=== PATIENT | female | born 1935 | race Caucasian/White ===

== ENCOUNTER 2016-11-22 14:54 | Emergency (ER) | payer OTHER ==
[2016-11-22 15:04] VITALS: BP 123/61; PULSE 62; TEMP 97.8; BMI 27.3
--- NOTE | 2016-11-22 15:21 | PDOC ---
History of Present Illness - General Chief Complaint: Rash Stated Complaint: RASH TO RIGHT LEG Time Seen by Provider: 11/22/16 14:56 - History of Present Illness Initial Comments: 11/22/16 15:21 Chief complaint: Rash History of present illness: Patient complains of an itchy rash, primarily on the right lateral calf, but also in the left calf, left and right thighs. The rash is pruritic, and the patient scratches it frequently. She has been seen and treated by her primary physician with 0.1% triamcinolone and clotrimazole antifungal with no results. Review of systems: No skin ALLERGIES known. No chest pain, shortness of breath, abdominal pain, nausea, vomiting, diarrhea, visual or focal neurologic symptoms , unsteadiness of gait. No new medications. No exposure to suspicious foods or allergens Past medical history: Patient is extremely active and vibrant despite multiple medical problems including [id number] diabetes for 20 years, high blood pressure, chronic vertigo, colon cancer in remission, GERD, elevated cholesterol, irritable bowel, with constipation, and osteoporosis Social history: Lives with daughter, fully active, still was out dancing, no tobacco alcohol or nonprescription drugs Family history: Reviewed and noncontributory Physical exam: Alert oriented cheerful and cooperative no acute distress Afebrile, vital signs normal HEENT clear Neck supple without bruit mass or nodes Lungs clear CV regular without murmur rub or gallop Abdomen benign Neurological intact Skin reveals eczematous lesions the largest of which is about 6 cm x 4 cm, lateral right thigh. There are petechiae around these lesions, probably the result of scratching. The patient had full blood workup approximately one week ago at her primary physician's office, reported as normal. The number similar smaller Leeson's on the left thigh. There are hyperpigmented, 1-2 cm round lesions on the thighs and arms which do not appear to be active and appeared to be the result of scarring. They are nontender non-erythematous cool and noninflamed Impression: Stasis dermatitis of the calves. Posttraumatic hyperpigmentation of the thighs and arms Plan: Steroid cream. Support hose. Vascular referral. Past History - Past Medical History Allergies/Adverse Reactions: Allergies Allergy/AdvReac Type Severity Reaction Status Date / Time No Known Allergies Allergy Verified 11/22/16 14:55 Home Medications: Ambulatory Orders Alendronate Sodium [Fosamax Liquid] 70 mg PO DAILY 09/16/12 Gabapentin 300 mg PO HS 09/16/12 Metformin HCl [Glucophage -] 500 mg PO DAILY 09/16/12 Simvastatin [Zocor -] 40 mg PO HS 09/16/12 Valsartan [Diovan] 320 mg PO DAILY 09/17/12 Alprazolam 1 tab PO DAILY 02/13/15 Olopatadine HCl [Pataday] 1 drop OU BID 02/13/15 Omeprazole [Prilosec (RX)] 1 tab PO DAILY PRN 02/13/15 Sotalol HCl [Sotalol] 1 tab PO BID 02/13/15 Timolol Maleate 0.5% Gfs [Timoptic Xe 0.5%] 1 drop OU DAILY 02/13/15 Apixaban [Eliquis] 5 mg PO BID 02/14/15 Psyllium Husk [Metamucil] 0.52 gm PO DAILY 02/14/15 Calcium [Hi-Malvin] 1,200 mg PO DAILY 02/26/15 Spironolactone 25 mg PO DAILY 02/26/15 Betamethasone/Propylene Glyc [Diprolene 0.05% Ointment] 1 applic TP BID #1 tube 11/22/16 Cyclosporine [Restasis] 1 drp DAILY 11/22/16 Hydroxyzine HCl [Atarax -] 10 mg PO TID PRN #20 tablet 11/22/16 Propylene Glycol/Peg 400/Pf [Systane 0.3-0.4% Eye Drops] 1 each OP DAILY Anemia: No Asthma: No Cancer: Yes (H/O COLON ADENOCARCINOMA,OVARIAN CANCER) Cardiac Disorders: Yes (CORONARY ARTERY DISEASE,CARDIAC ARRHYTHMIAS) CVA: No COPD: No CHF: Yes Dementia: No Diabetes: Yes GI Disorders: Yes (CHRONIC CONSTIPATION,REDUNDANT COLON,ULCER STOMACH) Disorders: No HTN: Yes Hypercholesterolemia: Yes Liver Disease: No Seizures: No Thyroid Disease: No Other medical history: OSTEOARTHRITIS, CATARACTS GLAUCOMA - Surgical History Abdominal Surgery: Yes Appendectomy: No Cardiac Surgery: No Cholecystectomy: No GI Surgery: Yes (COLON SURGERY) Lung Surgery: No Neurologic Surgery: Yes (LAMINECTOMY) Orthopedic Surgery: No - Psycho/Social/Smoking Cessation Hx Anxiety: No Suicidal Ideation: No Smoking History: Never smoked Information on smoking cessation initiated: No Hx Alcohol Use: No Drug/Substance Use Hx: No Substance Use Type: None Hx Substance Use Treatment: No *Physical Exam - Vital Signs Last Vital Signs Temp Pulse Resp BP Pulse Ox 97.8 F 62 16 123/61 99 11/22/16 14:55 11/22/16 14:55 11/22/16 14:55 11/22/16 14:55 11/22/16 14:55 *DC/Admit/Observation/Transfer Diagnosis at time of Disposition: Stasis dermatitis of both legs - Discharge Dispostion Disposition: HOME Condition at time of disposition: Stable Admit: No - Prescriptions Prescriptions: Hydroxyzine HCl [Atarax -] 10 mg PO TID PRN #20 tablet PRN Reason: For Itching Betamethasone/Propylene Glyc [Diprolene 0.05% Ointment] 1 applic TP BID #1 tube - Referrals Referrals: Felipe Wolfe MD [Staff Physician] - - Patient Instructions Additional Instructions: Avoid hot baths and showers. Use heavy skin moisturizer, especially after bathing. Ointment as directed. See clinical nursing manager for further evaluation and possible skin biopsy Use oral medication as prescribed for severe itching, but be aware of drowsiness
== END 2016-11-22 15:42 | disposition home or self-care (01) ==
LOC: FER 14:54
DX: I87.2 Venous insufficiency (chronic) (peripheral) (principal); Z85.038 Personal history of other malignant neoplasm of large intestine; Z85.43 Personal history of malignant neoplasm of ovary; E11.9 Type 2 diabetes mellitus without complications; I10 Essential (primary) hypertension; E78.00 Pure hypercholesterolemia, unspecified; M19.90 Unspecified osteoarthritis, unspecified site; I25.10 Atherosclerotic heart disease of native coronary artery without angina pectoris
CPT/HCPCS: 99281-25

== ENCOUNTER 2018-04-02 14:02 | Emergency (ER) | payer OTHER ==
[2018-04-02] MEDS ORDERED: IBUPROFEN 600 MG TABLET (FP) PO ONE ×2 (14:18→14:42)
[2018-04-02] MEDS ORDERED: ACETAMINOPHEN 500 MG TABLET (FP) PO ONE (14:18)
--- NOTE | 2018-04-02 14:18 | PDOC ---
History of Present Illness - General Chief Complaint: Injury Stated Complaint: RT KNEE PAIN Time Seen by Provider: 04/02/18 14:03 - History of Present Illness Initial Comments: 04/02/18 14:04 Patient is an 82F with history of DM, HTN, afib on eliquis, hld, glaucoma here today complaining of 2 weeks of knee pain. Pain is worse with used and holding the joint still at an angle. Patient is an active dancer. Denies fevers, chills , nausea, vomiting. Denies chest pain, shortness of breath, recent travel. No history of dvt in the past. Past History - Past Medical History Allergies/Adverse Reactions: Allergies Allergy/AdvReac Type Severity Reaction Status Date / Time No Known Allergies Allergy Verified 11/22/16 14:55 Home Medications: Ambulatory Orders Gabapentin 300 mg PO HS 09/16/12 Simvastatin [Zocor -] 40 mg PO HS 09/16/12 metFORMIN HCL [Glucophage -] 500 mg PO DAILY 09/16/12 Valsartan [Diovan] 320 mg PO DAILY 09/17/12 Alprazolam 1 tab PO DAILY 02/13/15 Olopatadine HCl [Pataday] 1 drop OU BID 02/13/15 Omeprazole [Prilosec (RX)] 1 tab PO DAILY PRN 02/13/15 Sotalol HCl [Sotalol] 1 tab PO BID 02/13/15 Timolol Maleate 0.5% Gfs [Timoptic Xe 0.5%] 1 drop OU DAILY 02/13/15 Apixaban [Eliquis] 5 mg PO BID 02/14/15 Calcium [Hi-Malvin] 1,200 mg PO DAILY 02/26/15 Spironolactone 25 mg PO DAILY 02/26/15 Betamethasone/Propylene Glyc [Diprolene 0.05% Ointment] 1 applic TP BID #1 tube 11/22/16 Cyclosporine [Restasis] 1 drp DAILY 11/22/16 Anemia: No Asthma: No Cancer: Yes (H/O COLON ADENOCARCINOMA,OVARIAN CANCER) Cardiac Disorders: Yes (CORONARY ARTERY DISEASE,CARDIAC ARRHYTHMIAS) CVA: No COPD: No CHF: Yes Dementia: No Diabetes: Yes GI Disorders: Yes (CHRONIC CONSTIPATION,REDUNDANT COLON,ULCER STOMACH) Disorders: No HTN: Yes Hypercholesterolemia: Yes Liver Disease: No Seizures: No Thyroid Disease: No - Surgical History Abdominal Surgery: Yes Appendectomy: No Cardiac Surgery: No Cholecystectomy: No GI Surgery: Yes (COLON SURGERY) Lung Surgery: No Neurologic Surgery: Yes (LAMINECTOMY) Orthopedic Surgery: No - Suicide/Smoking/Psychosocial Hx Smoking History: Never smoked Hx Alcohol Use: No Drug/Substance Use Hx: No Substance Use Type: None Hx Substance Use Treatment: No Review of Systems - Review of Systems Comments:: 04/02/18 14:25 GENERAL/CONSTITUTIONAL: No fever or chills. No weakness. HEAD, EYES, EARS, NOSE AND THROAT: No change in vision. No sore throat. CARDIOVASCULAR: No chest pain or shortness of breath RESPIRATORY: No cough, wheezing, or hemoptysis. GASTROINTESTINAL: No nausea, vomiting, diarrhea or constipation. GENITOURINARY: No dysuria, frequency, or change in urination. MUSCULOSKELETAL: +R knee pain. No neck or back pain. SKIN: No rash NEUROLOGIC: No headache, vertigo, loss of consciousness, or change in strength/ sensation. HEME: No history of blood clots *Physical Exam - Physical Exam Comments: 04/02/18 14:41 GENERAL: Awake, alert, and fully oriented, in no acute distress R KNEE: No point tenderness, no injury noted, nontender in posterior vascular distribution HEAD: No signs of trauma, normocephalic, atraumatic EYES: PERRLA, EOMI, sclera anicteric, conjunctiva clear ENT: Auricles normal inspection, hearing grossly normal, nares patent, oropharynx clear without exudates. Moist mucosa LUNGS: No distress, speaks full sentences, clear to auscultation bilaterally HEART: Regular rate and rhythm, normal S1 and S2, no murmurs, rubs or gallops, peripheral pulses normal and equal bilaterally. ABDOMEN: Soft, nontender, normoactive bowel sounds. No guarding, no rebound. No masses EXTREMITIES: Normal inspection, Normal range of motion, no edema. No clubbing or cyanosis. NEUROLOGICAL: Cranial nerves II through XII grossly intact. Normal speech, normal gait, no focal sensorimotor deficits SKIN: Warm, Dry, normal turgor, no rashes or lesions noted. Medical Decision Making - Medical Decision Making 04/02/18 14:41 Patient is 82F on eliquis here with knee pain. Vitals normal and stable. Blood clot only life threat. Will treat with tylenol and motrin. Will eval with x- rays and dvt us. 04/02/18 14:56 X-rays show arthritis, no acute fracture, dislocation. Patient is ambulatory in ED. 04/02/18 15:56 DVT negative. Will discharge home. *DC/Admit/Observation/Transfer Diagnosis at time of Disposition: Knee pain, right - Discharge Dispostion Disposition: HOME Condition at time of disposition: Good Decision to Admit order: No - Referrals - Patient Instructions Printed Discharge Instructions: DI for Knee Pain Additional Instructions: Please follow up with your MRI on Thursday. Please return if you have any new, worsening or concerning symptoms. Please follow up with your primary care provider. - Post Discharge Activity
--- NOTE | 2018-04-02 14:31 | PDOC ---
Attending Attestation - Resident Resident Name: Swapnil Ponce - ED Attending Attestation I have performed the following: I have examined & evaluated the patient, The case was reviewed & discussed with the resident, I agree w/resident's findings & plan, Exceptions are as noted - HPI HPI: 04/02/18 14:25 82-year-old female patient with past history of hypertension, hyperlipidemia, atrial fibrillation on eliquis, presents with right knee pain for 2 weeks. The patient is a dancer and dances frequently. Had noticed 2 weeks ago that she was developing right hip pain radiating to right knee. Reports discomfort along the right thigh as well. No fevers or chills. No chest pain short of breath. Patient attempted to call their primary care physician but wasn't able to secure follow-up. Came to the ER for evaluation. - Physicial Exam PE: 04/02/18 14:28 GENERAL: Awake, alert, and fully oriented, in no acute distress HEAD: No signs of trauma EYES: PERRLA, EOMI, sclera anicteric, conjunctiva clear ENT: Auricles normal inspection, hearing grossly normal, nares patent. Moist mucosa NECK: Normal ROM, supple, EXTREMITIES: Normal range of motion, no edema. No clubbing or cyanosis. No cords, erythema, or tenderness RLE: 2+ Dp pulse. sensation intact throughout. FROM Knee and Hip. Pelvis stable and nontender. Femur nontendner. Mild TTP right anterior knee. Negative orville sign. negative anterior/posterior drawer sign. negative varus/valgus. NEUROLOGICAL: Cranial nerves II through XII grossly intact. Normal speech, normal gait SKIN: Warm, Dry, normal turgor, no rashes or lesions noted. - Medical Decision Making 04/02/18 14:31 I suspect likely musculoskeletal pain or strain. However, will r/o hip and knee fracture. RLE duplex to r/o DVT. If negative, supportive care with tylenol and/or motrin and follow up with PMD/ ortho. 04/02/18 15:53 Ultrasound demonstrates no DVT Xrays reviewed by me, pending official radiology read. No acute fractures. Noted to have arthritis.
[2018-04-02 14:38] VITALS: BP 115/65; PULSE 72; TEMP 98.1; BMI 27.2
[2018-04-02] MEDS ORDERED: ACETAMINOPHEN 500 MG TABLET (FP) ONE (14:42)
== END 2018-04-02 16:08 | disposition home or self-care (01) ==
LOC: FER 14:02
DX: M25.561 Pain in right knee (principal); Z79.01 Long term (current) use of anticoagulants; I50.9 Heart failure, unspecified; I10 Essential (primary) hypertension; Z85.038 Personal history of other malignant neoplasm of large intestine; E78.00 Pure hypercholesterolemia, unspecified; I49.9 Cardiac arrhythmia, unspecified
CPT/HCPCS: 73523-TC-FY; 73562-TC-RT-FY; 93971-TC; 99281-25

== ENCOUNTER 2018-05-13 06:55 | Day surgery (SDC) | payer OTHER ==
[2018-05-12 14:16] VITALS: BMI 24.7
[2018-05-13] MEDS ORDERED: SUCCINYLCHOLINE CHLORIDE 200 MG/10 ML VIAL ONE (07:45)
[2018-05-13] MEDS ORDERED: PROPOFOL 20 ML ONE (07:45)
[2018-05-13] MEDS ORDERED: SODIUM CHLORIDE 0.9% P/F 10 ML VIAL IJ ONE (07:47)
[2018-05-13] MEDS ORDERED: ceFAZolin SODIUM 1 GM VIAL ONE (07:47)
[2018-05-13] MEDS ORDERED: DEXAMETHASONE SOD PHOSPHATE 4 MG/1 ML VIAL ONE (07:47)
[2018-05-13] MEDS ORDERED: LIDOCAINE HCL/PF 2% SDV 5ML VIAL ONE (07:47)
[2018-05-13] MEDS ORDERED: LIDOCAINE HCL 1%, 10 MG/ML (20ML VIAL) ONE (08:27)
[2018-05-13] MEDS ORDERED: BUPIVACAINE HCL/PF 0.5% (5MG/ML) 10 ML VIAL ONE (08:27)
--- NOTE | 2018-05-13 08:42 | HP ---
Satellite [facility] - Chief Complaint Chief Complaint: right knee pain History of Present Illness: right knee medial and lateral mensicus tears, OA History Source: Patient Limitations to Obtaining History: No Limitations - Past Medical History Allergies/Adverse Reactions: Allergies Allergy/AdvReac Type Severity Reaction Status Date / Time No Known Allergies Allergy Verified 05/13/18 07:49 - Current Medications Current Medications: Home Medications Medication Instructions Recorded Simvastatin [Zocor -] 40 mg PO HS 09/16/12 metFORMIN HCL [Glucophage -] 500 mg PO DAILY 09/16/12 Olopatadine HCl [Pataday] 1 drop OU BID 02/13/15 Omeprazole [Prilosec (RX)] 1 tab PO DAILY PRN 02/13/15 Sotalol HCl [Sotalol] 1 tab PO BID 02/13/15 Timolol Maleate 0.5% Gfs [Timoptic 1 drop OU DAILY 02/13/15 Xe 0.5%] Apixaban [Eliquis] 5 mg PO BID 02/14/15 Spironolactone 25 mg PO DAILY 02/26/15 Cyclosporine [Restasis] 1 drp OU DAILY 11/22/16 Calcium Carbonate/Vitamin D3 2 each PO DAILY 05/12/18 [Calcium 600 + Vit D Tablet] Linaclotide [Linzess] 145 mcg PO DAILY 05/12/18 Meclizine HCl [Antivert -] 25 mg PO DAILY 05/12/18 Tramadol HCl 50 mg PO PRN PRN 05/12/18 Alprazolam 1 mg PO PRN PRN 05/13/18 Fosamprenavir Calcium 700 mg PO WEEKLY 05/13/18 Gabapentin 100 mg PO DAILY 05/13/18 Gabapentin 300 mg PO HS 05/13/18 Psyllium Husk (with Sugar) 3.4 gm PO DAILY 05/13/18 [Metamucil Packet] Valsartan [Diovan] 320 mg PO 05/13/18 Satellite Physical Exam - Physical Examination Vital Signs: Vital Signs Period Temp Pulse Resp BP Sys/Marie Pulse Ox Last 24 Hr 97.6 F 68 18 138/74 100 General Appearance: Well Nourished ENT: Clear Lung: Clear to auscultation Heart: Regular rate & rhythm Breasts: Soft Abdomen: Soft Extremities: No edema Satellite Impression/Plan - Impression/Plan Impression: right knee medial and lateral meniscus tears, OA Operative Procedure: right knee arthroscopy Date to be Performed: 05/13/18
[2018-05-13] MEDS ORDERED: METOPROLOL TARTRATE 5 MG/5 ML VIAL ONE (08:47)
[2018-05-13] MEDS ORDERED: ceFAZolin SODIUM 1 GM VIAL IVPB ONE (09:05)
[2018-05-13] MEDS ORDERED: BUPIVACAINE HCL/PF 0.5% (5MG/ML) 10 ML VIAL IJ ONE (09:45)
--- NOTE | 2018-05-13 09:58 | OP ---
Operative Note - Note: Operative Date: 05/13/18 Pre-Operative Diagnosis: right knee pain, MM and LM tear, OA Operation: right knee arthroscopy, partial medial and lateral meniscus tear, debridement chondroplasty, partial synovectomy Post-Operative Diagnosis: Same as Pre-op Surgeon: Jacques Brady Anesthesiologist/FOOD AND BEVERAGE ATTENDANT: Domo Pacheco Anesthesia: General, Local Specimens Removed: shavings Estimated Blood Loss (mls): 0 Drains, Volume Out (mls): 0 Blood Volume Replaced (mls): 0 Fluid Volume Replaced (mls): 500 Operative Report Dictated: Yes
[2018-05-13] MEDS ORDERED: ONDANSETRON 4 MG/2 ML VIAL IVPUSH PRN (10:02)
[2018-05-13] MEDS ORDERED: oxyCODONE HCL 5 MG TABLET PO PRN ×2 (10:02)
[2018-05-13] MEDS ORDERED: LACTATED RINGERS SOLUTION 1,000 ML IV SCH (10:15)
--- NOTE | 2018-05-13 11:30 | OP ---
DATE OF OPERATION: 05/13/2018 PREOPERATIVE DIAGNOSES: Right knee pain, medial and lateral meniscus tear, and osteoarthritis. POSTOPERATIVE DIAGNOSES: Right knee pain, medial and lateral meniscus tear, and osteoarthritis. PROCEDURES: Right knee arthroscopy, partial medial and lateral meniscectomy, debridement chondroplasty, and partial synovectomy. SURGEON: Gumaro Min MD ASSISTANTS: None. ANESTHESIOLOGIST: Domo Pacheco CRNA ANESTHESIA: LMA anesthesia with intra-articular injection of 10 mL 0.5% Marcaine. DRAINS: None. COMPLICATIONS: None. SPECIMEN: Arthroscopic shavings. BLOOD LOSS: None. BLOOD GIVEN: None. FLUID REPLACEMENT: 500 mL INDICATIONS FOR PROCEDURE: This patient is an 82-year-old female with a preoperative diagnosis of right knee arthritis, medial and lateral meniscus tear, and osteoarthritis. After understanding the potential risks, complications, alternatives, and benefits of surgical versus nonsurgical treatment, the patient elected to undergo this procedure. PROCEDURE: Patient was brought to the operating room, peripheral IV placed, and IV sedation given. Ancef 1 g IV was given. LMA anesthesia was induced. Ample Webril was placed around the right knee. The right lower extremity was prepped and draped in sterile fashion, elevated, exsanguinated with an Esmarch bandage, and tourniquet inflated to 275 mmHg. A superior medial outflow portal was established. A lateral portal was established and the arthroscope was introduced into the joint using a spinal needle. Under direct visualization, a lateral portal was established. A diagnostic arthroscopy was performed. In the medial compartment, the patient was seen to have significant grade 3 and small areas of grade 4 osteoarthritis of the medial femoral condyle and grade 2 changes of the medial tibial plateau. A gentle debridement chondroplasty was performed. The patient was also seen to have a complex tear of the posterior horn of the medial meniscus. This was debrided with the up-biter, straight basket forceps and the curved shaver. Photographs were taken before and after. Next, our attention turned to the intracondylar notch. The ACL looked good. There was a lot of synovitis. This was removed. Next, our attention turned to the lateral compartment. Also, there was a lot of synovitis. This was removed. The patient had small radial tears of the body and posterior horn in the lateral meniscus. This was debrided. The lateral compartment did have some grade 2 osteoarthritis of the lateral femoral condyle, but overall looked better than the medial compartment. She had grade 1 changes in the lateral tibial plateau. This was gently debrided, as well. Next, our attention turned to the patellofemoral joint. The patient had the most significant osteoarthritis in this area. She had grade 4, widespread, complete loss of cartilage of both the undersurface of the patella and as well as the femoral trochlea. A debridement chondroplasty was performed here, as well. Debris was removed. Loose bodies were removed. A lot of synovitis was removed. The area was put through a range of motion and no other abnormalities were seen of the patellofemoral joint. The area was copiously irrigated and washed out. All instrumentation and debris removed. The arthroscopy portals were closed with 3-0 nylon sutures. The area was then washed and dried. Marcaine 0.5% of 10 mL was introduced into the joint. It was then covered with Xeroform, 4 x 4 gauze, Webril, and an Mert bandage. The tourniquet was taken down after a total tourniquet time of 28 minutes. There were no complications during the case. The patient tolerated the procedure quite well and was brought to the ambulatory recovery room in stable condition. GUMARO MIN M.D. [id number]
[2018-05-13 14:45] VITALS: BP 133/62; PULSE 75; TEMP 98.1
--- NOTE | 2018-05-14 16:41 | PATH ---
Surgical Pathology Report Patient Name: GAMAL SPANGLER [facility]. Rec. #: [id number] /Age/Gender: 1935 (Age: 82) / F Account: [id number] Location: [facility] Taken: 05/13/2018 Received: 05/13/2018 Reported: 05/14/2018 Physicians: Jacques Brady M.D. Specimen(s) Received RIGHT KNEE SHAVINGS Clinical History Right knee tear Final Diagnosis KNEE SHAVINGS, RIGHT, ARTHROSCOPY: FRAGMENTS OF CARTILAGE, DENSE FIBROCONNECTIVE TISSUE, FIBROADIPOSE TISSUE, AND REACTIVE SYNOVIUM. 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 Electronically Signed Rose Mary Hoover M.D. Gross Description Received in formalin, labeled "right knee shaving," is a 5.5 x 4.5 x 0.6 cm. aggregate of wagoner-yellow soft tissue fragments. A counter sales representative portion is submitted in one cassette. 05/13/2018 saudi05/13/2018
== END 2018-05-13 14:00 | disposition home or self-care (01) ==
LOC: JASU-SURG 06:55
PROVIDERS: ATTEND Orthopaedic Surgery
PROC: 0SBC4ZZ Excision of Right Knee Joint, Percutaneous Endoscopic Approach (ICD-10-PCS; 2018-05-13)
PROC: 0SBC4ZZ Excision of Right Knee Joint, Percutaneous Endoscopic Approach (ICD-10-PCS; 2018-05-13)
PROC: 0SBC4ZZ Excision of Right Knee Joint, Percutaneous Endoscopic Approach (ICD-10-PCS; principal; 2018-05-13 09:00)
DX: S83.281A Other tear of lateral meniscus, current injury, right knee, initial encounter (principal); S83.241A Other tear of medial meniscus, current injury, right knee, initial encounter; X58.XXXA Exposure to other specified factors, initial encounter; Y93.89 Activity, other specified; Y92.9 Unspecified place or not applicable; M65.861 Other synovitis and tenosynovitis, right lower leg; M17.11 Unilateral primary osteoarthritis, right knee
CPT/HCPCS: 82962; 88304-TC; 94760; 97116-GP

== ENCOUNTER 2018-05-26 22:35 | Observation (INO) | payer OTHER ==
--- NOTE | 2018-05-26 23:29 | PDOC ---
History of Present Illness - General Chief Complaint: Pain Stated Complaint: KNEE SWOLLEN History Source: Patient - History of Present Illness Initial Comments: 05/27/18 01:29 82 year old female with history of DM, HTN, afib on eliquis, hld, glaucoma hc/o right knee pain patient is s/p knee arthroses on 05/13, reports that last night while she was taking a shower she noticed increase in pain with unable to weightbear. patient needed a lot of help to be taken out of the 3rd floor apartment as per son and daughter. denies trauma, fall, fever/ chills, chest pain, dizziness. 05/27/18 01:56 Past History - Past Medical History Allergies/Adverse Reactions: Allergies Allergy/AdvReac Type Severity Reaction Status Date / Time No Known Allergies Allergy Verified 05/26/18 22:44 Home Medications: Ambulatory Orders Simvastatin [Zocor -] 40 mg PO HS 09/16/12 metFORMIN HCL [Glucophage -] 500 mg PO DAILY 09/16/12 Olopatadine HCl [Pataday] 1 drop OU BID 02/13/15 Omeprazole [Prilosec (RX)] 1 tab PO DAILY PRN 02/13/15 Sotalol HCl [Sotalol] 1 tab PO BID 02/13/15 Timolol Maleate 0.5% Gfs [Timoptic Xe 0.5%] 1 drop OU DAILY 02/13/15 Apixaban [Eliquis] 5 mg PO BID 02/14/15 Spironolactone 25 mg PO DAILY 02/26/15 Cyclosporine [Restasis] 1 drp OU DAILY 11/22/16 Calcium Carbonate/Vitamin D3 [Calcium 600 + Vit D Tablet] 2 each PO DAILY Linaclotide [Linzess] 145 mcg PO DAILY 05/12/18 Meclizine HCl [Antivert -] 25 mg PO DAILY 05/12/18 Tramadol HCl 50 mg PO PRN PRN 05/12/18 Alprazolam 1 mg PO PRN PRN 05/13/18 Fosamprenavir Calcium 700 mg PO WEEKLY 05/13/18 Gabapentin 100 mg PO DAILY 05/13/18 Gabapentin 300 mg PO HS 05/13/18 Hydrocodone/Acetaminophen [Hydrocodone-Acetamin 5-325 mg] 1 - 2 tab PO TID PRN # 25 tablet MDD 6 05/13/18 Psyllium Husk (with Sugar) [Metamucil Packet] 3.4 gm PO DAILY 05/13/18 Valsartan [Diovan] 320 mg PO 05/13/18 Anemia: No Asthma: No Cancer: Yes (H/O COLON ADENOCARCINOMA,OVARIAN CANCER) Cardiac Disorders: Yes (CORONARY ARTERY DISEASE,CARDIAC ARRHYTHMIAS) CVA: No COPD: No CHF: Yes Dementia: No Diabetes: Yes GI Disorders: Yes (CHRONIC CONSTIPATION,REDUNDANT COLON,ULCER STOMACH) Disorders: No HTN: Yes Hypercholesterolemia: Yes Liver Disease: No Seizures: No Thyroid Disease: No - Surgical History Abdominal Surgery: Yes Appendectomy: No Cardiac Surgery: No Cholecystectomy: No GI Surgery: Yes (COLON SURGERY) Lung Surgery: No Neurologic Surgery: Yes (LAMINECTOMY 1997) Orthopedic Surgery: No - Suicide/Smoking/Psychosocial Hx Smoking History: Never smoked Have you smoked in the past 12 months: No Information on smoking cessation initiated: No Hx Alcohol Use: No Drug/Substance Use Hx: No Substance Use Type: None Hx Substance Use Treatment: No Review of Systems - Review of Systems Able to Perform ROS?: Yes Is the patient limited Yoruba proficient: No Constitutional: No: Symptoms Reported, See HPI, Chills, Diaphoresis, Fever, Loss of Appetite, Malaise, Night Sweats, Weakness, Weight Stable, Unintentional Wgt. Loss, Unexplained wgt Loss, Other Musculoskeletal: Yes: Other (knee pain and swelling) *Physical Exam - Vital Signs Last Vital Signs Temp Pulse Resp BP Pulse Ox 98.1 F 86 18 158/79 99 05/26/18 22:45 05/26/18 22:45 05/26/18 22:45 05/26/18 22:45 05/26/18 22:45 - Physical Exam General Appearance: Yes: Appropriately Dressed Extremity: positive: Other (right knee swelling. no erythema. surgical site clean dry and intact) Integumentary: positive: Dry, Warm, Other (+ distal pulses) Neurologic: positive: Fully Oriented, Alert Moderate Sedation - Procedure Monitoring Vital Signs: Procedure Monitoring Vital Signs Temperature 98.1 F 05/26/18 22:45 Pulse Rate 86 05/26/18 22:45 Respiratory Rate 18 05/26/18 22:45 Blood Pressure 158/79 05/26/18 22:45 O2 Sat by Pulse Oximetry (%) 99 05/26/18 22:45 Progress Note - Progress Note Progress Note: A: right knee pain P: ct US pain control likely admit for rehab evaluation. Medical Decision Making - Medical Decision Making 05/27/18 01:26 CT: There is a moderately large complex joint effusion of the right knee, not a hemarthrosis. There is no fracture. 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 The cruciate and collateral ligaments are grossly intact although better evaluated with MRI. Similar arthritic changes and meniscal calcinosis noted in the left knee but there is no joint effusion. There is no DVT in the right lower extremity. There is a 4.4 x 1.3 x 1.5 cm Gabriel's cyst. *DC/Admit/Observation/Transfer Diagnosis at time of Disposition: Inability to bear weight Right knee pain Qualifiers: Chronicity: acute Qualified Code(s): M25.561 - Pain in right knee - Referrals Referrals: Saira Morales MD [Primary Care Provider] - - Patient Instructions - Post Discharge Activity
--- NOTE | 2018-05-26 23:31 | PDOC ---
*Physical Exam - Vital Signs Last Vital Signs Temp Pulse Resp BP Pulse Ox 98.1 F 86 18 158/79 99 05/26/18 22:45 05/26/18 22:45 05/26/18 22:45 05/26/18 22:45 05/26/18 22:45 Medical Decision Making - Medical Decision Making 05/26/18 23:31 Patient seen by the advanced practice provider under my direct supervision. Ancillary testing reviewed as necessary. I agree with plan as outlined by the advanced practice provider. *DC/Admit/Observation/Transfer Diagnosis at time of Disposition: Inability to bear weight Right knee pain Qualifiers: Chronicity: acute Qualified Code(s): M25.561 - Pain in right knee - Referrals Referrals: Saira Morales MD [Primary Care Provider] - - Patient Instructions - Post Discharge Activity
[2018-05-27] MEDS ORDERED: morphine CARPU-JECT 4 MG/1 ML DISP.SYRIN IVPUSH ONE (01:38)
[2018-05-27] MEDS ORDERED: ACETAMINOPHEN 1000 MG/100 ML VIAL (NON FORMULARY) IVPB ONE (01:39)
[2018-05-27] MEDS ORDERED: ACETAMINOPHEN INJECTION 100 ML IVPB ONE (02:47)
[2018-05-27] MEDS ORDERED: morphine SULFATE 4 MG/ML VIAL ONE (02:47)
[2018-05-27 03:02] LABS: BASO % 0.3 % (0-2.0); HEMATOCRIT 37.1 % (32.4-45.2); HEMOGLOBIN 12.9 GM/dL (10.7-15.3); LYMPH % 12.7 % (8-40); MCH 33.2 pg (25.7-33.7); MCHC 34.8 g/dl (32.0-36.0); MEAN CELL VOLUME 95.5 fl (80-96); MEAN PLT VOLUME 7.4 fl (7.5-11.1); MONO % 3.8 % (3.8-10.2); NEUT % 83.2 % (42.8-82.8); PLATELET COUNT 199 K/MM3 (134-434); RBC 3.89 M/mm3 (3.60-5.2); RDW 12.9 % (11.6-15.6); WHITE BLOOD COUNT 9.1 K/mm3 (4.0-10.0)
[2018-05-27 03:26] LABS: INR 1.25 (0.83-1.09); PROTHROMBIN TIME (PATIENT) 14.8 SEC (9.7-13.0)
[2018-05-27 03:29] LABS: ACTIVATED PTT 31.5 SECONDS (25.2-36.5)
[2018-05-27 03:32] LABS: ALBUMIN 3.8 g/dl (3.4-5.0); ALK PHOS 76 U/L (45-117); ANION GAP 7 MMOL/L (8-16); BLOOD UREA NITROGEN 26 mg/dL (7-18); CALCIUM 9.6 mg/dL (8.5-10.1); CHLORIDE 97 mmol/L (98-107); CO2 26 mmol/L (21-32); CREATININE 1.1 mg/dL (0.55-1.3); GLUCOSE,RANDOM 128 mg/dL (74-106); POTASSIUM 4.6 mmol/L (3.5-5.1); SGOT/AST 40 U/L (15-37); SGPT/ALT 23 U/L (13-61); SODIUM 131 mmol/L (136-145); TOT PROT 8.1 g/dl (6.4-8.2)
[2018-05-27] MEDS ORDERED: ACETAMINOPHEN 325 MG TABLET (FP) PO PRN (04:07)
[2018-05-27] MEDS ORDERED: MORPHINE SULFATE 2 MG/ML VIAL IVPUSH PRN (04:07)
[2018-05-27] MEDS ORDERED: FOSAMPRENAVIR CALCIUM 700 MG TABLET PO SCH (04:15)
--- NOTE | 2018-05-27 04:44 | HP ---
CHIEF COMPLAINT: status post right knee surgery on 05/13, here with right knee pain and cannot weight bear PCP:Dr. Cerda Orthopedic Surgeon:Dr. Brady Brand Marketing Intern: Dr. Dickinson at [facility] HISTORY OF PRESENT ILLNESS: 82 year old female with history of diabetes mellitus, hypertension, hypercholesterolemia, atrial fibrillation(on sotolol and eliquis), colon resection in 2010 in [place](no recent follow up with Oncology), osteoporosis and benign breast tumor removal who underwent right knee surgery with Dr. Brady on 05/13/2018. She was seen one week ago at his office for suture removal. She presented to ER with complaints of increased pain and swelling to right knee and unable to weight bear. Upon evaluation CT scan of right lower extremity showed a right knee joint effusion. She had no evidence of tachycardia or hypoxemia. She denied symptoms of chest pain, shortness of breath, dizziness or syncopy.Venous doppler showed no evidence of DVT. Labs notable for a normal WBC , hematocrit and hemoglobin. Significant for hyponatremia. She remains afebrile. She received on dosage of IV morphine and IV tylenol with some relief in right knee pain. She is being admitted to observation for Orthopedic and physical therapy evaluation and pain control. Recent Travel:Denies PAST MEDICAL HISTORY: diabetes mellitus hypertension hypercholesterolemia atrial fibrillation(on sotolol and eliquis) colon resection in 2010 constipation osteoporosis PAST SURGICAL HISTORY: partial hysterectomy, oophorectomy laminectomy L4-L5 in 1997 benign breast tumor removal Social History: Smoking:Denies Alcohol:Denies Drugs: Denies Family History:noncontributory Allergies No Known Allergies Allergy (Verified 05/26/18 22:44) HOME MEDICATIONS: Home Medications Medication Instructions Recorded Simvastatin [Zocor -] 40 mg PO HS 09/16/12 metFORMIN HCL [Glucophage -] 500 mg PO DAILY 09/16/12 Olopatadine HCl [Pataday] 1 drop OU BID 02/13/15 Omeprazole [Prilosec (RX)] 1 tab PO DAILY PRN 02/13/15 Sotalol HCl [Sotalol] 1 tab PO BID 02/13/15 Timolol Maleate 0.5% Gfs [Timoptic 1 drop OU DAILY 02/13/15 Xe 0.5%] Apixaban [Eliquis] 5 mg PO BID 02/14/15 Spironolactone 25 mg PO DAILY 02/26/15 Cyclosporine [Restasis] 1 drp OU DAILY 11/22/16 Calcium Carbonate/Vitamin D3 2 each PO DAILY 05/12/18 [Calcium 600 + Vit D Tablet] Linaclotide [Linzess] 145 mcg PO DAILY 05/12/18 Meclizine HCl [Antivert -] 25 mg PO DAILY 05/12/18 Tramadol HCl 50 mg PO PRN PRN 05/12/18 Alprazolam 1 mg PO PRN PRN 05/13/18 Fosamprenavir Calcium 700 mg PO WEEKLY 05/13/18 Gabapentin 100 mg PO DAILY 05/13/18 Gabapentin 300 mg PO HS 05/13/18 Hydrocodone/Acetaminophen 1 - 2 tab PO TID PRN #25 tablet 05/13/18 [Hydrocodone-Acetamin 5-325 mg] MDD 6 Psyllium Husk (with Sugar) 3.4 gm PO DAILY 05/13/18 [Metamucil Packet] Valsartan [Diovan] 320 mg PO DAILY 05/13/18 REVIEW OF SYSTEMS CONSTITUTIONAL: Absent: fever, chills, diaphoresis, generalized weakness, malaise, loss of appetite, weight change HEENT: Absent: rhinorrhea, nasal congestion, throat pain, throat swelling, difficulty swallowing, mouth swelling, ear pain, eye pain, visual changes CARDIOVASCULAR: Absent: chest pain, syncope, palpitations, irregular heart rate, lightheadedness , peripheral edema RESPIRATORY: Absent: cough, shortness of breath, dyspnea with exertion, orthopnea, wheezing, stridor, hemoptysis GASTROINTESTINAL: Absent: abdominal pain, abdominal distension, nausea, vomiting, diarrhea, constipation, melena, hematochezia GENITOURINARY: Absent: dysuria, frequency, urgency, hesitancy, hematuria, flank pain, genital pain MUSCULOSKELETAL: Absent: myalgia, arthralgia, joint swelling, back pain, neck pain, right knee pain and swelling SKIN: Absent: rash, itching, pallor HEMATOLOGIC/IMMUNOLOGIC: Absent: easy bleeding, easy bruising, lymphadenopathy, frequent infections ENDOCRINE: Absent: unexplained weight gain, unexplained weight loss, heat intolerance, cold intolerance NEUROLOGIC: Absent: headache, focal weakness or paresthesias, dizziness, unsteady gait, seizure, mental status changes, bladder or bowel incontinence PSYCHIATRIC: Absent: anxiety, depression, suicidal or homicidal ideation, hallucinations. PHYSICAL EXAMINATION Vital Signs - 24 hr 05/26/18 22:45 Temperature 98.1 F Pulse Rate 86 Respiratory 18 Rate Blood Pressure 158/79 O2 Sat by Pulse 99 Oximetry (%) GENERAL: awake, alert, and fully oriented, in no acute distress HEAD: normal with no signs of trauma EYES: Pupils equal, round and reactive to light NECK: normal range of motion, supple LUNGS: breath sounds equal, clear to auscultation bilaterally. no wheezes, and no crackles. No accessory muscle use HEART: Regular rate and rhythm, normal S1 and S2 without murmur ABDOMEN: Soft, nontender, not distended, normoactive bowel sounds, no guarding, no rebound, no masses MUSCULOSKELETAL: Normal range of motion at all joints. No bony deformities or tenderness UPPER EXTREMITIES: 2+ pulses, warm, well-perfused. No cyanosis. No clubbing. No peripheral edema. LOWER EXTREMITIES: 2+ pulses, warm, well-perfused. right lower extremity swelling to right knee, warm on palpation, no purulence, no erythema NEUROLOGICAL: normal speech PSYCHIATRIC: cooperative. good eye contact. appropriate mood and affect. SKIN: warm, dry, normal turgor, no rashes or lesions noted, normal capillary refill. Laboratory Results - last 24 hr 05/27/18 05/27/18 05/27/18 02:35 02:36 02:36 WBC 9.1 RBC 3.89 Hgb 12.9 Hct 37.1 MCV 95.5 MCH 33.2 MCHC 34.8 RDW 12.9 Plt Count 199 MPV 7.4 L Absolute Neuts (auto) 7.5 Neutrophils % 83.2 H Lymphocytes % 12.7 Monocytes % 3.8 Eosinophils % 0.0 Basophils % 0.3 Nucleated RBC % 0 PT with INR 14.80 H INR 1.25 H PTT (Actin FS) 31.5 Sodium 131 L Potassium 4.6 Chloride 97 L Carbon Dioxide 26 Anion Gap 7 L BUN 26 H Creatinine 1.1 Creat Clearance w eGFR 47.79 Random Glucose 128 H Calcium 9.6 Total Bilirubin 1.0 AST 40 H ALT 23 Alkaline Phosphatase 76 Total Protein 8.1 Albumin 3.8 ASSESSMENT/PLAN: Mrs. Murillo is a 82 year old female with history of diabetes mellitus, hypertension, hypercholesterolemia, atrial fibrillation(on sotolol and eliquis) , colon resection in 2011, osteoporosis and benign breast tumor removal who underwent right knee surgery with Dr. Brady on 05/13/2018. She presented with complaints of increased pain and swelling to right knee and unable to weight bear. She has no evidence of tachycardia or hypoxemia. CT scan of right lower extremity showed a right joint effusion(see official report when available). Venous doppler showed no evidence of DVT. Right Knee Pain in setting of Joint Effusion No evidence of an acute infection on exam, no leukocytosis, patient is afebrile. Orthopedic Surgery- Dr. Brady consulted. PT consult requested. Likely will need physical therapy with inpatient PT and rehabilitation. Social work consulted. Continue with pain medication, ES Tylenol and IV morphine for severe pain as needed. Will hold Eliquis in anticipation of possible aspiration of right knee joint effusion. Resume Eliquis post procedure if indicated. Continue with SCD's and lovenox for DVT prophylaxsis. Hyponatremia Will hold aldactone in this setting. Continue to monitor. Diabetes mellitus Accucheks before meals and at bedtime. Continue with metformin. Hypertension Controlled. Continue with diovan, aldatone placed on hold in setting of hyponatremia. Hypercholesterolemia Continue statin therpay. Atrial fibrillation Patient is in a normal sinus rhythm. Continue sotolol for rhythm control. Continue with lovenox for stroke and DVT prophylaxis. Resume Eliquis when cleared from Orthopedic standpoint. DVT Prophylaxisis SCD's and lovenox 30 mg twice daily Visit type - Emergency Visit Emergency Visit: Yes ED Registration Date: 05/27/18 Care time: The patient presented to the Emergency Department on the above date and was hospitalized for further evaluation of their emergent condition. - New Patient This patient is new to me today: Yes Date on this admission: 05/27/18 - Critical Care Critical Care patient: No
[2018-05-27] MEDS ORDERED: metFORMIN HCL 500 MG TABLET (FP) PO SCH (07:00)
[2018-05-27 08:32] VITALS: BP 112/61; PULSE 71; TEMP 97.8; BMI 26.7
[2018-05-27] MEDS ORDERED: PT OWN MED DRAWER 7, Y5N ONE (09:43)
--- NOTE | 2018-05-27 09:45 | CON.ORTH ---
Consult Reason for Consultation:: right knee pain s/p arthroscopy - Alcohol/Substance Use Hx Alcohol Use: No - Smoking History Smoking history: Never smoked Have you smoked in the past 12 months: No Home Medications - Allergies Allergies/Adverse Reactions: Allergies Allergy/AdvReac Type Severity Reaction Status Date / Time No Known Allergies Allergy Verified 05/26/18 22:44 - Home Medications Home Medications: Ambulatory Orders Simvastatin [Zocor -] 40 mg PO HS 09/16/12 metFORMIN HCL [Glucophage -] 500 mg PO DAILY 09/16/12 Olopatadine HCl [Pataday] 1 drop OU BID 02/13/15 Omeprazole [Prilosec (RX)] 1 tab PO DAILY PRN 02/13/15 Sotalol HCl [Sotalol] 1 tab PO BID 02/13/15 Timolol Maleate 0.5% Gfs [Timoptic Xe 0.5%] 1 drop OU DAILY 02/13/15 Apixaban [Eliquis] 5 mg PO BID 02/14/15 Spironolactone 25 mg PO DAILY 02/26/15 Cyclosporine [Restasis] 1 drp OU DAILY 11/22/16 Calcium Carbonate/Vitamin D3 [Calcium 600 + Vit D Tablet] 2 each PO DAILY Linaclotide [Linzess] 145 mcg PO DAILY 05/12/18 Meclizine HCl [Antivert -] 25 mg PO DAILY 05/12/18 Tramadol HCl 50 mg PO PRN PRN 05/12/18 Alprazolam 1 mg PO PRN PRN 05/13/18 Fosamprenavir Calcium 700 mg PO WEEKLY 05/13/18 Gabapentin 100 mg PO DAILY 05/13/18 Gabapentin 300 mg PO HS 05/13/18 Hydrocodone/Acetaminophen [Hydrocodone-Acetamin 5-325 mg] 1 - 2 tab PO TID PRN # 25 tablet MDD 6 05/13/18 Psyllium Husk (with Sugar) [Metamucil Packet] 3.4 gm PO DAILY 05/13/18 Valsartan [Diovan] 320 mg PO DAILY 05/13/18 Physical Exam for Ortho Vital Signs: Vital Signs Temperature 97.8 F 05/27/18 07:58 Pulse Rate 71 05/27/18 07:58 Respiratory Rate 18 05/27/18 07:58 Blood Pressure 112/61 05/27/18 07:58 O2 Sat by Pulse Oximetry (%) 98 05/27/18 07:58 Labs: CBC, BMP 05/27/18 02:36 05/27/18 02:35 INR, PTT INR 1.25 (0.83-1.09) H 05/27/18 02:36 - Lower Extremity Knee: Yes: Right, Limited ROM, Pain, Swelling, Other (2+ effusuion, portal sites well healed, + ecchymosis, mild ttp, rom 0-50, calf soft, nt, nvi) Imaging - Results Cat Scan: Report Reviewed, Image Reviewed Assessment/Plan 82 year old female with history of diabetes mellitus, hypertension, hypercholesterolemia, atrial fibrillation(on sotolol and eliquis), colon resection in 2010 in [place](no recent follow up with Oncology), osteoporosis and benign breast tumor removal who underwent right knee arthroscopy with Dr. Brady on 05/13/2018. She was seen one week ago at his office for suture removal. She presented to ER with complaints of increased pain and swelling to right knee and unable to weight bear. Upon evaluation CT scan of right lower extremity showed a right knee joint effusion. She had no evidence of tachycardia or hypoxemia. She denied symptoms of chest pain, shortness of breath , dizziness or syncopy.Venous doppler showed no evidence of DVT. Labs notable for a normal WBC, hematocrit and hemoglobin. a/p right knee effusion 2 weeks s/p right knee arthroscopy, on eliquis Consent obtained, time-out performed, under sterile techinuque right knee was aspirated, 30cc of blood was aspirated, sterile pressure dressing applied pt tolerated procedure well with no actue reactions PT eval, wbat hold eliquis for today, ok to resume tomorrow ok to d/c pt home today after PT f/u in the office next week with Dr. Brady d/w Dr. Brady
[2018-05-27] MEDS ORDERED: VALSARTAN 160 MG TABLET (UD) PO SCH (10:00)
[2018-05-27] MEDS ORDERED: PATIENT'S OWN MEDICATION (NON-FORMULARY) (Linaclotide [Linzess] 145 MCG) PO SCH (10:00)
[2018-05-27] MEDS ORDERED: SOTALOL HCL 80 MG TABLET (FP) PO SCH (10:00)
[2018-05-27] MEDS ORDERED: TIMOLOL MALEATE 0.5% GFS OPHTHALMIC SOLN 5 ML BOTTLE OU SCH (10:00)
[2018-05-27] MEDS ORDERED: APIXABAN 5 MG TABLET PO SCH (10:00)
[2018-05-27] MEDS ORDERED: GABAPENTIN 100 MG CAPSULE (FP) PO SCH (10:00)
[2018-05-27] MEDS ORDERED: PANTOPRAZOLE 40 MG TABLET (FP) PO SCH (10:00)
[2018-05-27] MEDS ORDERED: CYCLOSPORINE OU SCH (10:00)
[2018-05-27] MEDS ORDERED: PSYLLIUM 5.85 GM PACKET PO SCH (10:00)
[2018-05-27] MEDS ORDERED: SPIRONOLACTONE 25 MG TABLET (FP) PO SCH (10:00)
[2018-05-27] MEDS ORDERED: PATIENT'S OWN MEDICATION (NON-FORMULARY) (Olopatadine Hcl [Pataday] 1 DROP) OU SCH (10:00)
[2018-05-27] MEDS ORDERED: ENOXAPARIN NA (PORCINE) 30 MG/0.3 ML DISP.SYRIN SQ SCH (10:00)
[2018-05-27] MEDS ORDERED: CALCIUM 500MG/VIT-D 200 UNITS COMBO TABLET (FP) PO SCH (10:00)
[2018-05-27] MEDS ORDERED: MECLIZINE HCL 25 MG TABLET (FP) PO SCH (10:00)
--- NOTE | 2018-05-27 10:23 | DS ---
Physical Examination Vital Signs: Vital Signs Temperature 97.8 F 05/27/18 07:58 Pulse Rate 71 05/27/18 07:58 Respiratory Rate 18 05/27/18 07:58 Blood Pressure 112/61 05/27/18 07:58 O2 Sat by Pulse Oximetry (%) 98 05/27/18 07:58 Findings/Remarks: Patient is an 82 y/o female patient with past medical history of DM, HTN, hypercholesterolemia, a fib (sotolol and eliquis). Patient is s/p R knee surgery on 05/13/[address] Brady. Patient presented to ER with complaints of R knee pain and unable to bear weight on RLE. Lower extremity CT scan show effusion to R knee. Evaluated by Dr. Brady and 30cc were aspirated from R knee. Patient currently denies complain to RLE and ambulating without difficulty. Evaluated by PT and recommend PT services for home and ambulation with cane. Constitutional: Yes: Well Nourished, No Distress, Calm Eyes: Yes: Conjunctiva Clear HENT: Yes: Normocephalic Neck: Yes: Supple Cardiovascular: Yes: Regular Rate and Rhythm Respiratory: Yes: Regular, CTA Bilaterally Gastrointestinal: Yes: Normal Bowel Sounds, Soft Musculoskeletal: Yes: Joint Stiffness, Muscle Weakness Edema: No Neurological: Yes: Alert, Oriented Psychiatric: Yes: Alert, Oriented Labs: CBC, BMP 05/27/18 02:36 05/27/18 02:35 Discharge Summary Reason For Visit: RIGHT KNEE PAIN Current Active Problems Knee pain, right (Acute) Procedures: Principal: lower extremity CT scan Hospital Course: see progress notes Laboratory Results - last 24 hr 05/27/18 05/27/18 05/27/18 02:35 02:36 02:36 WBC 9.1 RBC 3.89 Hgb 12.9 Hct 37.1 MCV 95.5 MCH 33.2 MCHC 34.8 RDW 12.9 Plt Count 199 MPV 7.4 L Absolute Neuts (auto) 7.5 Neutrophils % 83.2 H Lymphocytes % 12.7 Monocytes % 3.8 Eosinophils % 0.0 Basophils % 0.3 Nucleated RBC % 0 PT with INR 14.80 H INR 1.25 H PTT (Actin FS) 31.5 Sodium 131 L Potassium 4.6 Chloride 97 L Carbon Dioxide 26 Anion Gap 7 L BUN 26 H Creatinine 1.1 Creat Clearance w eGFR 47.79 POC Glucometer Random Glucose 128 H Calcium 9.6 Total Bilirubin 1.0 AST 40 H ALT 23 Alkaline Phosphatase 76 Total Protein 8.1 Albumin 3.8 05/27/18 05/27/18 09:03 11:44 WBC RBC Hgb Hct MCV MCH MCHC RDW Plt Count MPV Absolute Neuts (auto) Neutrophils % Lymphocytes % Monocytes % Eosinophils % Basophils % Nucleated RBC % PT with INR INR PTT (Actin FS) Sodium Potassium Chloride Carbon Dioxide Anion Gap BUN Creatinine Creat Clearance w eGFR POC Glucometer 189 108 Random Glucose Calcium Total Bilirubin AST ALT Alkaline Phosphatase Total Protein Albumin Home Medication List Medication Instructions Recorded Confirmed Type Simvastatin [Zocor -] 40 mg PO HS 09/16/12 05/27/18 History metFORMIN HCL [Glucophage -] 500 mg PO DAILY 09/16/12 05/27/18 History Olopatadine HCl [Pataday] 1 drop OU BID 02/13/15 05/27/18 History Omeprazole [Prilosec (RX)] 1 tab PO DAILY PRN 02/13/15 05/27/18 History Sotalol HCl [Sotalol] 1 tab PO BID 02/13/15 05/27/18 History Timolol Maleate 0.5% Gfs [Timoptic 1 drop OU DAILY 02/13/15 05/27/18 History Xe 0.5%] Apixaban [Eliquis] 5 mg PO BID 02/14/15 05/27/18 History Spironolactone 25 mg PO DAILY 02/26/15 05/27/18 History Cyclosporine [Restasis] 1 drp OU DAILY 11/22/16 05/27/18 History Calcium Carbonate/Vitamin D3 2 each PO DAILY 05/12/18 05/27/18 History [Calcium 600 + Vit D Tablet] Linaclotide [Linzess] 145 mcg PO DAILY 05/12/18 05/27/18 History Meclizine HCl [Antivert -] 25 mg PO DAILY 05/12/18 05/27/18 History Tramadol HCl 50 mg PO PRN PRN 05/12/18 05/27/18 History Alprazolam 1 mg PO PRN PRN 05/13/18 05/27/18 History Fosamprenavir Calcium 700 mg PO WEEKLY 05/13/18 05/27/18 History Gabapentin 100 mg PO DAILY 05/13/18 05/27/18 History Gabapentin 300 mg PO HS 05/13/18 05/27/18 History Psyllium Husk (with Sugar) 3.4 gm PO DAILY 05/13/18 05/27/18 History [Metamucil Packet] Valsartan [Diovan] 320 mg PO DAILY 05/13/18 05/27/18 History Active Medications Generic Name Dose Route Start Last Admin Trade Name Freq PRN Reason Stop Dose Admin Acetaminophen 650 mg 05/27/18 04:07 Tylenol - PO Q4H PRN PAIN LEVEL 4 - 6 Atorvastatin Calcium 20 mg 05/27/18 22:00 Lipitor - PO HS [facility] Calcium Carbonate/Cholecalciferol 2 tab 05/27/18 10:00 05/27/18 10:23 Os-Malvin 500+D - PO 2 tab DAILY [facility] Administration Enoxaparin Sodium 30 mg 05/27/18 10:00 05/27/18 10:23 Lovenox - SQ 30 mg BID [facility] Administration Gabapentin 100 mg 05/27/18 10:00 05/27/18 10:22 Neurontin - PO 100 mg DAILY [facility] Administration Meclizine HCl 25 mg 05/27/18 10:00 05/27/18 10:23 Antivert - PO 25 mg DAILY [facility] Administration Metformin HCl 500 mg 05/27/18 07:00 05/27/18 09:00 Glucophage - PO 500 mg DAILY@0700 [facility] Administration Morphine Sulfate 2 mg 05/27/18 04:07 Morphine Sulfate IVPUSH Q6H PRN PAIN LEVEL 7 - 10 Pantoprazole Sodium 40 mg 05/27/18 10:00 05/27/18 10:23 Protonix - PO 40 mg DAILY [facility] Administration Psyllium Hydrophilic Mucilloid 5.85 gm 05/27/18 10:00 05/27/18 10:24 Metamucil (Sugar-Free) - PO 5.85 gm DAILY [facility] Administration Sotalol HCl 80 mg 05/27/18 10:00 05/27/18 10:23 Betapace - PO 80 mg BID [facility] Administration Timolol Maleate 1 drop 05/27/18 10:00 Timoptic Xe 0.5% OU DAILY [facility] Valsartan 320 mg 05/27/18 10:00 05/27/18 10:22 Diovan - PO 320 mg DAILY [facility] Administration Condition: Stable - Instructions Diet, Activity, Other Instructions: Patient instructed to follow up with PMD in 3-4 days Patient to follow up with Dr. Brady in 1 week for follow WBAT to RLE, ambulate with cane continue with meds as prescribed if develop severe pain or unable to ambulate return to ED Referrals: Saira Morales MD [Primary Care Provider] - Jacques Brady MD [Staff Physician] - Disposition: VNS/HOME HEALTH CARE - Home Medications Comprehensive Discharge Medication List: Ambulatory Orders Simvastatin [Zocor -] 40 mg PO HS 09/16/12 metFORMIN HCL [Glucophage -] 500 mg PO DAILY 09/16/12 Olopatadine HCl [Pataday] 1 drop OU BID 02/13/15 Omeprazole [Prilosec (RX)] 1 tab PO DAILY PRN 02/13/15 Sotalol HCl [Sotalol] 1 tab PO BID 02/13/15 Timolol Maleate 0.5% Gfs [Timoptic Xe 0.5%] 1 drop OU DAILY 02/13/15 Apixaban [Eliquis] 5 mg PO BID 02/14/15 Spironolactone 25 mg PO DAILY 02/26/15 Cyclosporine [Restasis] 1 drp OU DAILY 11/22/16 Calcium Carbonate/Vitamin D3 [Calcium 600 + Vit D Tablet] 2 each PO DAILY Linaclotide [Linzess] 145 mcg PO DAILY 05/12/18 Meclizine HCl [Antivert -] 25 mg PO DAILY 05/12/18 Tramadol HCl 50 mg PO PRN PRN 05/12/18 Alprazolam 1 mg PO PRN PRN 05/13/18 Fosamprenavir Calcium 700 mg PO WEEKLY 05/13/18 Gabapentin 100 mg PO DAILY 05/13/18 Gabapentin 300 mg PO HS 05/13/18 Hydrocodone/Acetaminophen [Hydrocodone-Acetamin 5-325 mg] 1 - 2 tab PO TID PRN # 25 tablet MDD 6 05/13/18 Psyllium Husk (with Sugar) [Metamucil Packet] 3.4 gm PO DAILY 05/13/18 Valsartan [Diovan] 320 mg PO DAILY 05/13/18
--- NOTE | 2018-05-27 15:41 | EKG ---
Test Reason : Blood Pressure : / mmHG Vent. Rate : 079 BPM Atrial Rate : 079 BPM P-R Int : 166 ms QRS Dur : 142 ms QT Int : 438 ms P-R-T Axes : 069 -41 102 degrees QTc Int : 502 ms POOR DATA QUALITY, INTERPRETATION MAY BE ADVERSELY AFFECTED NORMAL SINUS RHYTHM LEFT AXIS DEVIATION LEFT BUNDLE BRANCH BLOCK ABNORMAL ECG NO PREVIOUS ECGS AVAILABLE Confirmed by VERNA ROBIN, TIA ([id number]) on 05/27/2018 3:41:24 PM Referred By: Confirmed By:TIA GILLESPIE MD
[2018-05-27] MEDS ORDERED: ATORVASTATIN CA 20 MG TABLET (FP) PO SCH (22:00)
== END 2018-05-27 13:34 | disposition home or self-care (01) ==
LOC: JER 22:35 → JERBED 05-27 03:38 → J6S 05-27 07:35
PROVIDERS: ADMIT Internal Medicine; ATTEND Family Medicine
PROC: 0S9C3ZZ Drainage of Right Knee Joint, Percutaneous Approach (ICD-10-PCS; principal; 2018-05-27)
PROC: 3E033GC Introduction of Other Therapeutic Substance into Peripheral Vein, Percutaneous Approach (ICD-10-PCS; 2018-05-27)
DX: M25.461 Effusion, right knee (principal); R26.2 Difficulty in walking, not elsewhere classified; M25.561 Pain in right knee; E87.1 Hypo-osmolality and hyponatremia; I10 Essential (primary) hypertension; E78.5 Hyperlipidemia, unspecified; E11.9 Type 2 diabetes mellitus without complications; I48.91 Unspecified atrial fibrillation; I25.10 Atherosclerotic heart disease of native coronary artery without angina pectoris; H40.9 Unspecified glaucoma; Z85.038 Personal history of other malignant neoplasm of large intestine; Z85.43 Personal history of malignant neoplasm of ovary; Z79.84 Long term (current) use of oral hypoglycemic drugs; Z79.01 Long term (current) use of anticoagulants
CPT/HCPCS: 36415; 73700-TC-RT; 80053; 82962; 85025; 85610; 85730; 93005; 93010; 93971-TC; 96372; 97116-GP; 97161-GP; 99284-25; G0378; J0131

== ENCOUNTER 2018-07-02 07:51 | Day surgery (SDC) | payer OTHER ==
[2018-07-01 12:23] VITALS: BMI 27.2
[2018-07-02] MEDS ORDERED: METOPROLOL TARTRATE 5 MG/5 ML VIAL ONE (10:20)
[2018-07-02 10:50] VITALS: TEMP 97.8
[2018-07-02 13:00] VITALS: BP 130/86; PULSE 72
--- NOTE | 2018-07-05 12:12 | PATH ---
Surgical Pathology Report Patient Name: GAMAL SPANGLER [facility]. Rec. #: [id number] /Age/Gender: 1935 (Age: 82) / F Account: [id number] Location: [facility]-ENDOSCOPY Taken: 07/02/2018 Received: 07/02/2018 Reported: 07/05/2018 Physicians: Ludwig Vallecillo M.D. Specimen(s) Received A: ANASTOMOSIS BIOPSY B: RECTAL POLYPS Clinical History History of colon cancer Postoperative diagnosis: Diverticulosis transverse colon anastomosis, rectal polyps Final Diagnosis A. COLON, ANASTOMOSIS BIOPSY: COLONIC MUCOSA WITH NO PATHOLOGIC CHANGES. NO ACTIVE COLITIS, ARCHITECTURAL DISTORTION, GRANULOMATA, OR DYSPLASIA IDENTIFIED. NO MICROSCOPIC COLITIS IDENTIFIED (NO LYMPHOCYTIC OR COLLAGENOUS COLITIS IDENTIFIED). B. COLON BIOPSY: HYPERPLASTIC POLYP. Electronically Signed Willis Miles M.D. Gross Description A. Received in formalin, labeled "anastomosis biopsy" are 4 wagoner, irregular portions of soft tissue ranging from 0.2-0.9 cm. in greatest dimension. The specimens are submitted in toto in one cassette. B. Received in formalin, labeled "rectal polyps" are 2 wagoner, irregular portions of soft tissue measuring 0.2 and 0.4 cm. in greatest dimension. The specimens are submitted in toto in one cassette. 07/02/201807/02/2018
== END 2018-07-02 12:52 | disposition home or self-care (01) ==
LOC: JASU-ENDO 07:51
PROVIDERS: ATTEND Internal Medicine Gastroenterology
PROC: 0DBP8ZX Excision of Rectum, Via Natural or Artificial Opening Endoscopic, Diagnostic (ICD-10-PCS; principal; 2018-07-02 09:45)
DX: Z12.11 Encounter for screening for malignant neoplasm of colon (principal); Z80.0 Family history of malignant neoplasm of digestive organs; K57.30 Diverticulosis of large intestine without perforation or abscess without bleeding; K62.1 Rectal polyp; K64.8 Other hemorrhoids; Z98.0 Intestinal bypass and anastomosis status
CPT/HCPCS: 88305-TC

== ENCOUNTER 2018-10-22 00:17 | Inpatient (IN) | payer OTHER ==
[2018-10-22 00:23] VITALS: BMI 25.6
--- NOTE | 2018-10-22 00:33 | PDOC ---
History of Present Illness - General Chief Complaint: Blood Pressure Problem Stated Complaint: HTN/NAUSEA/HEADACHE History Source: Patient, Family Exam Limitations: No Limitations - History of Present Illness Initial Comments: 10/22/18 00:29 This is an 83-year-old female brought in by her daughter for evaluation of nausea vomiting and headache. Also complaining of some elevated blood pressure earlier. Daughter said that her mother begin vomiting after eating dinner. At the time of this evaluation mother said she had felt better and had no more nausea and her blood pressure is 140 systolic. Allergies: as per nursing notes Past Medical History: none Social history: Lives with family. No smoking. No alcohol. No illicit drugs. Surgical history: None General: No fevers or chills, no weakness, no weight loss HEENT: No change in vision. No sore throat,. No ear pain CardioVascular: no chest discomfort. No shortness of breath Respiratory:No cough, or wheezing. Gastrointestinal: + nausea, + vomiting, no diarrhea or constipation, No rectal bleeding Genitourinary: No dysuria, hematuria, or frequency Musculoskeletal: No joint or muscle pain or swelling Neurologic: No headache, vertigo, dizziness or loss of consciousness Psychiatric: nor depression Skin: No rashes or easy bruising Endocrine: no increased thirst or abnormal weight change Allergic: no skin or latex allergy All other systems reviewed and normal Exam: General: Well-nourished well-developed individual, no acute distress HEENT: Throat: Normal, tonsils normal, no erythema or exudate Neck: Supple, no meningeal signs, no lymphadenopathy Eyes::Pupils equal reactive and round, extraocular motion intact Chest: Nontender to palpation Cardiac: S1-S2 normal, regular rate and rhythm, no murmurs rubs or gallops Respiratory: Lungs clear to auscultation bilateral Abdomen: Soft, nondistended, normal bowel sounds, there is no tenderness on palpation diffusely Extremities: Warm, dry, no cyanosis, clubbing, or edema Skin: No rashes Neuro: Alert and oriented x3, CN II - XII intact, nonfocal exam with normal strength, normal sensation, normal reflexes, normal gait, Psych: Normal mood and affect Assessment and plan: This is an 83-year-old female who comes in for evaluation hypertension nausea and vomiting. The time patient arrived in the emergency room symptoms had pretty much resolved. However patient's workup revealed a sodium of 119 so patient will be admitted for hyponatremia. Patient started on IV fluids. Past History - Past Medical History Allergies/Adverse Reactions: Allergies Allergy/AdvReac Type Severity Reaction Status Date / Time No Known Allergies Allergy Verified 08/02/18 08:13 Home Medications: Ambulatory Orders Simvastatin [Zocor -] 40 mg PO HS 09/16/12 metFORMIN HCL [Glucophage -] 500 mg PO DAILY 09/16/12 Olopatadine HCl [Pataday] 1 drop OU BID 02/13/15 Omeprazole [Prilosec (RX)] 1 tab PO DAILY PRN 02/13/15 Sotalol HCl [Sotalol] 1 tab PO BID 02/13/15 Timolol Maleate 0.5% Gfs [Timoptic Xe 0.5%] 1 drop OU DAILY 02/13/15 Apixaban [Eliquis] 5 mg PO BID 02/14/15 Spironolactone 25 mg PO DAILY 02/26/15 Cyclosporine [Restasis] 1 drp OU DAILY 11/22/16 Calcium Carbonate/Vitamin D3 [Calcium 600 + Vit D Tablet] 2 each PO DAILY Linaclotide [Linzess] 145 mcg PO DAILY 05/12/18 Meclizine HCl [Antivert -] 25 mg PO DAILY 05/12/18 Tramadol HCl 50 mg PO PRN PRN 05/12/18 Alprazolam 1 mg PO PRN PRN 05/13/18 Clotrimazole 0.01 gm TP DAILY 07/01/18 Dextran 70/Hypromellose/Pf [Genteal Tears 0.1%-0.3% Drop] 1 drop OU DAILY Gabapentin 600 mg PO BID 07/01/18 Lisinopril 10 mg PO DAILY 07/01/18 Propylene Glycol/Peg 400/Pf [Systane 0.3-0.4% Eye Drop] 1 each OU DAILY Anemia: No Asthma: No Cancer: Yes (H/O COLON CANCER,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) CVA: No COPD: No CHF: Yes Dementia: No Diabetes: Yes (NON INSULIN DEPEDNDENT DIABETES) GI Disorders: Yes (CHRONIC CONSTIPATION,REDUNDANT COLON,ULCER STOMACH) Disorders: No HTN: Yes Hypercholesterolemia: Yes Liver Disease: No Seizures: No Thyroid Disease: No - Surgical History Abdominal Surgery: Yes (RIGHT HEMICOLECTOMY FOR CANCER) Appendectomy: No Cardiac Surgery: No Cholecystectomy: No GI Surgery: Yes (COLON SURGERY) Lung Surgery: No Neurologic Surgery: Yes (L4-L5 LAMINECTOMY) Orthopedic Surgery: Yes (ARTHROSCOPY LEFT KNEE) - Suicide/Smoking/Psychosocial Hx Smoking History: Unknown if ever smoked Have you smoked in the past 12 months: No Information on smoking cessation initiated: No Hx Alcohol Use: No Drug/Substance Use Hx: No Substance Use Type: None Hx Substance Use Treatment: No *Physical Exam - Vital Signs Last Vital Signs Temp Pulse Resp BP Pulse Ox 98.3 F 72 18 145/75 98 10/22/18 00:20 10/22/18 00:20 10/22/18 00:20 10/22/18 00:20 10/22/18 00:20 ED Treatment Course - LABORATORY CBC & Chemistry Diagram: 10/22/18 00:36 10/22/18 00:36 *DC/Admit/Observation/Transfer Diagnosis at time of Disposition: Hyponatremia Nausea and vomiting Qualifiers: Vomiting type: unspecified Vomiting Intractability: non-intractable Qualified Code(s): R11.2 - Nausea with vomiting, unspecified - Discharge Dispostion Condition at time of disposition: Stable Decision to Admit order: Yes - Referrals Referrals: Saira Morales MD [Primary Care Provider] - - Patient Instructions Additional Instructions: Return to the emergency department immediately with ANY new, persistent or worsening symptoms. Continue any medications as previously prescribed by your physician. You should follow up with your primary doctor as soon as possible regarding today's emergency department visit. . Please make sure your doctor reviews the results of your emergency evaluation. Thank you for coming to the Emergency Department today for your care. It was a pleasure to see you today. Please note that your evaluation is INCOMPLETE until you follow-up with your doctor. - Post Discharge Activity
[2018-10-22 01:24] LABS: BASO % 0.3 % (0-2.0); EOS % 0.5 % (0-4.5); HEMATOCRIT 30.9 % (32.4-45.2); HEMOGLOBIN 10.7 GM/dL (10.7-15.3); LYMPH % 21.5 % (8-40); MCH 32.6 pg (25.7-33.7); MCHC 34.5 g/dl (32.0-36.0); MEAN CELL VOLUME 94.6 fl (80-96); MEAN PLT VOLUME 7.7 fl (7.5-11.1); MONO % 6.2 % (3.8-10.2); NEUT % 71.5 % (42.8-82.8); PLATELET COUNT 157 K/MM3 (134-434); RBC 3.27 M/mm3 (3.60-5.2); RDW 13.2 % (11.6-15.6); WHITE BLOOD COUNT 6.2 K/mm3 (4.0-10.0)
[2018-10-22 01:51] LABS: ALBUMIN 3.4 g/dl (3.4-5.0); ALK PHOS 76 U/L (45-117); BILIRUBIN,TOTAL 0.6 mg/dL (0.2-1); BLOOD UREA NITROGEN 20.8 mg/dL (7-18); CALCIUM 8.2 mg/dL (8.5-10.1); CHLORIDE 85 mmol/L (98-107); CO2 25 mmol/L (21-32); GLUCOSE,RANDOM 131 mg/dL (74-106); POTASSIUM 4.6 mmol/L (3.5-5.1); SGOT/AST 37 U/L (15-37); SGPT/ALT 28 U/L (13-61); TOT PROT 6.5 g/dl (6.4-8.2)
[2018-10-22 01:52] LABS: ANION GAP 9 MMOL/L (8-16)
[2018-10-22] MEDS ORDERED: SODIUM CHLORIDE 1,000 ML IV SCH ×2 (02:00→03:00)
[2018-10-22 02:02] LABS: SODIUM 119 mmol/L (136-145)
[2018-10-22 08:04] LABS: CALCIUM 8.9 mg/dl (8.5-10); CREATININE 0.8 mg/dl (0.55-1.3); POTASSIUM 4.5 mmol/L (3.5-5.1)
--- NOTE | 2018-10-22 08:56 | HP ---
Admitting History and Physical - Admission History of Present Illness: 83-year-old female brought in by her daughter for evaluation of nausea vomiting and headache. Also complaining of some elevated blood pressure earlier. Daughter said that her mother begin vomiting after eating dinner. At the time of this evaluation mother said she had felt better and had no more nausea and her blood pressure is 140 systolic. - Past Medical History Cardiovascular: Yes: HTN Gastrointestinal: Yes: GERD Endocrine: Yes: Diabetes Mellitus - Smoking History Smoking history: Unknown if ever smoked Have you smoked in the past 12 months: No - Alcohol/Substance Use Hx Alcohol Use: No Home Medications - Allergies Allergies/Adverse Reactions: Allergies Allergy/AdvReac Type Severity Reaction Status Date / Time No Known Allergies Allergy Verified 08/02/18 08:13 - Home Medications Home Medications: Ambulatory Orders Simvastatin [Zocor -] 40 mg PO HS 09/16/12 metFORMIN HCL [Glucophage -] 500 mg PO DAILY 09/16/12 Olopatadine HCl [Pataday] 1 drop OU BID 02/13/15 Omeprazole [Prilosec (RX)] 1 tab PO DAILY PRN 02/13/15 Sotalol HCl [Sotalol] 1 tab PO BID 02/13/15 Timolol Maleate 0.5% Gfs [Timoptic Xe 0.5%] 1 drop OU DAILY 02/13/15 Apixaban [Eliquis] 5 mg PO BID 02/14/15 Spironolactone 25 mg PO DAILY 02/26/15 Cyclosporine [Restasis] 1 drp OU DAILY 11/22/16 Calcium Carbonate/Vitamin D3 [Calcium 600 + Vit D Tablet] 2 each PO DAILY Linaclotide [Linzess] 145 mcg PO DAILY 05/12/18 Meclizine HCl [Antivert -] 25 mg PO PRN PRN 05/12/18 Tramadol HCl 50 mg PO PRN PRN 05/12/18 Alprazolam 1 mg PO PRN PRN 05/13/18 Clotrimazole 0.01 gm TP DAILY 07/01/18 Dextran 70/Hypromellose/Pf [Genteal Tears 0.1%-0.3% Drop] 1 drop OU DAILY Gabapentin 600 mg PO BID 07/01/18 Lisinopril 10 mg PO DAILY 07/01/18 Propylene Glycol/Peg 400/Pf [Systane 0.3-0.4% Eye Drop] 1 each OU DAILY Psyllium Husk [Metamucil] 0.4 gm PO DAILY 10/22/18 Review of Systems - Review of Systems Constitutional: denies: Fever Cardiovascular: denies: Chest Pain Gastrointestinal: reports: Nausea, Vomiting. denies: Abdominal Pain Neurological: reports: Headache. denies: Change in LOC, Change in Speech Endocrine: denies: Excessive Sweating Physical Examination Vital Signs: Vital Signs Temperature 97.7 F 10/22/18 06:58 Pulse Rate 53 L 10/22/18 06:58 Respiratory Rate 18 10/22/18 06:58 Blood Pressure 106/49 L 10/22/18 06:58 O2 Sat by Pulse Oximetry (%) 100 10/22/18 06:58 Cardiovascular: Yes: S1, S2 Respiratory: Yes: Regular, CTA Bilaterally Gastrointestinal: Yes: Normal Bowel Sounds, Soft. No: Tenderness Neurological: Yes: Alert, Oriented. No: Cran Nerves II-XII Intact Labs: CBC, BMP 10/22/18 00:36 10/22/18 07:21 Imaging - Results X-ray: Report Reviewed Problem List - Problems (1) Hyponatremia Assessment/Plan: maybe due to gi loss ivf monitor renal consult Code(s): E87.1 - HYPO-OSMOLALITY AND HYPONATREMIA (2) Diabetes Assessment/Plan: monitor bgm--ss Code(s): E11.9 - TYPE 2 DIABETES MELLITUS WITHOUT COMPLICATIONS (3) HTN (hypertension) Assessment/Plan: -monitor on sotolol hold aldactone Code(s): I10 - ESSENTIAL (PRIMARY) HYPERTENSION (4) Nausea and vomiting Assessment/Plan: -resolved monitor Code(s): R11.2 - NAUSEA WITH VOMITING, UNSPECIFIED Qualifiers: Vomiting type: unspecified Vomiting Intractability: non-intractable Qualified Code(s): R11.2 - Nausea with vomiting, unspecified
[2018-10-22] MEDS ORDERED: MECLIZINE HCL 25 MG TABLET (FP) PO PRN (09:14)
[2018-10-22] MEDS ORDERED: ALPRAZolam 0.25 MG TABLET PO PRN (09:16)
[2018-10-22] MEDS ORDERED: SOTALOL HCL PO SCH (10:00)
[2018-10-22] MEDS ORDERED: LISINOPRIL 10 MG TABLET (FP) PO SCH (10:00)
[2018-10-22] MEDS: APIXABAN 5 MG TABLET PO SCH ×2 (10:29→21:35)
[2018-10-22] MEDS: SOTALOL HCL 80 MG TABLET (FP) PO SCH ×2 (10:29→21:35)
[2018-10-22] MEDS: GABAPENTIN 300 MG CAPSULE (FP) PO SCH ×2 (10:30→21:35)
--- NOTE | 2018-10-22 10:52 | CONSULT ---
Consult Consult Specialty:: Nephrology Reason for Consultation:: hyponatremia - History of Present Illness Chief Complaint: nausea and vomiting History of Present Illness: Pt is an 83 year old female who presented to the ER with nausea and vomiting. Pt also had diarrhea. She experienced the vomiting after dinner. She also had diarrhea the whole night. Her diarrhea stopped today. I was called to evaluate her for hyponatremia. She has been trying to drink water. She feels that her headache is improving. She though her BP was high yesterday however values were near baseline in ER. She denies dyuria or hematuria. She has history of DM and HTN. She is on spironolactone at home. - History Source History Provided By: Patient, Medical Record - Past Medical History Cardio/Vascular: Yes: HTN Gastrointestinal: Yes: GERD Endocrine: Yes: Diabetes Mellitus - Alcohol/Substance Use Hx Alcohol Use: No - Smoking History Smoking history: Unknown if ever smoked Have you smoked in the past 12 months: No Home Medications - Allergies Allergies/Adverse Reactions: Allergies Allergy/AdvReac Type Severity Reaction Status Date / Time No Known Allergies Allergy Verified 08/02/18 08:13 - Home Medications Home Medications: Ambulatory Orders Simvastatin [Zocor -] 40 mg PO HS 09/16/12 metFORMIN HCL [Glucophage -] 500 mg PO DAILY 09/16/12 Olopatadine HCl [Pataday] 1 drop OU BID 02/13/15 Omeprazole [Prilosec (RX)] 1 tab PO DAILY PRN 02/13/15 Sotalol HCl [Sotalol] 1 tab PO BID 02/13/15 Timolol Maleate 0.5% Gfs [Timoptic Xe 0.5%] 1 drop OU DAILY 02/13/15 Apixaban [Eliquis] 5 mg PO BID 02/14/15 Spironolactone 25 mg PO DAILY 02/26/15 Cyclosporine [Restasis] 1 drp OU DAILY 11/22/16 Calcium Carbonate/Vitamin D3 [Calcium 600 + Vit D Tablet] 2 each PO DAILY Linaclotide [Linzess] 145 mcg PO DAILY 05/12/18 Meclizine HCl [Antivert -] 25 mg PO PRN PRN 05/12/18 Tramadol HCl 50 mg PO PRN PRN 05/12/18 Alprazolam 1 mg PO PRN PRN 05/13/18 Clotrimazole 0.01 gm TP DAILY 07/01/18 Dextran 70/Hypromellose/Pf [Genteal Tears 0.1%-0.3% Drop] 1 drop OU DAILY Gabapentin 600 mg PO BID 07/01/18 Lisinopril 10 mg PO DAILY 07/01/18 Propylene Glycol/Peg 400/Pf [Systane 0.3-0.4% Eye Drop] 1 each OU DAILY Psyllium Husk [Metamucil] 0.4 gm PO DAILY 10/22/18 Family Disease History - Family Disease History Family History: Denies Review of Systems - Review of Systems Constitutional: reports: Weakness. denies: Chills HENT: reports: No Symptoms Neck: reports: No Symptoms Cardiovascular: reports: No Symptoms Respiratory: reports: No Symptoms Gastrointestinal: reports: Diarrhea, Vomiting Genitourinary: reports: No Symptoms Musculoskeletal: reports: No Symptoms Integumentary: reports: No Symptoms Neurological: reports: No Symptoms Endocrine: reports: No Symptoms Hematology/Lymphatic: reports: No Symptoms Psychiatric: reports: No Symptoms Physical Exam Vital Signs: Vital Signs Temperature 98.3 F 10/22/18 10:19 Pulse Rate 60 10/22/18 10:19 Respiratory Rate 18 10/22/18 10:19 Blood Pressure 124/54 L 10/22/18 10:19 O2 Sat by Pulse Oximetry (%) 100 10/22/18 06:58 Constitutional: Yes: Calm Eyes: Yes: Conjunctiva Clear HENT: Yes: Atraumatic Neck: Yes: Supple Cardiovascular: Yes: S1, S2 Respiratory: Yes: CTA Bilaterally Gastrointestinal: Yes: Normal Bowel Sounds, Soft Renal/: Yes: WNL Musculoskeletal: Yes: WNL Edema: No Neurological: Yes: Oriented Psychiatric: Yes: Oriented Labs: CBC, BMP 10/22/18 00:36 10/22/18 07:21 Selected Entries 10/22/18 10/22/18 10/22/18 00:20 06:58 10:19 Blood Pressure 145/75 106/49 L 124/54 L Laboratory Tests 10/22/18 10/22/18 10/22/18 00:36 00:36 04:15 WBC 6.2 Hgb 10.7 Plt Count 157 D Sodium 119 L Ur Random Sodium 21 L 10/22/18 07:21 WBC Hgb Plt Count Sodium 121 L Ur Random Sodium Imaging - Results Chest X-ray: Report Reviewed Problem List - Problems (1) Hyponatremia Code(s): E87.1 - HYPO-OSMOLALITY AND HYPONATREMIA (2) Nausea and vomiting Code(s): R11.2 - NAUSEA WITH VOMITING, UNSPECIFIED Qualifiers: Vomiting type: unspecified Vomiting Intractability: non-intractable Qualified Code(s): R11.2 - Nausea with vomiting, unspecified Assessment/Plan Current Medications Generic Name Dose Route Start Last Admin Trade Name Freq PRN Reason Stop Dose Admin Alprazolam 0.5 mg 10/22/18 09:16 Xanax - PO TID PRN ANXIETY Apixaban 5 mg 10/22/18 10:00 10/22/18 10:29 Eliquis - PO 5 mg BID MILLICENT Administration Gabapentin 600 mg 10/22/18 10:00 10/22/18 10:30 Neurontin - PO 600 mg BID MILLICENT Administration Sodium Chloride 1,000 mls @ 42 mls/hr 10/22/18 03:00 10/22/18 03:09 Normal Saline - IV 42 mls/hr ASDIR MILLICENT Administration Meclizine HCl 25 mg 10/22/18 09:14 Antivert - PO TID PRN VERTIGO Sotalol HCl 160 mg 10/22/18 10:00 10/22/18 10:29 Betapace - PO 160 mg BID MILLICENT Administration Timolol Maleate 1 drop 10/22/18 10:00 Timoptic Xe 0.5% OU DAILY MILLICENT Impression 1. Hyponatremia 2. DM 3. HTN 4. nausea and vomiting - now improved 5. DM Plan - cont saline - urine sodium is low which is consistent with pre-renal disease - cont to monitor sodium levels - avoid a change of greater than 10 meq in 24 hrs - hold spironolactone for now - discussed with nursing staff - likely etiology of hyponatremia is from GI losses
[2018-10-22 12:32] LABS: CALCIUM 8.8 mg/dl (8.5-10); CREATININE 0.7 mg/dl (0.55-1.3); POTASSIUM 4.1 mmol/L (3.5-5.1)
[2018-10-22] MEDS: SODIUM CHLORIDE 1,000 ML IV SCH (13:12)
--- NOTE | 2018-10-22 13:22 | EKG ---
Test Reason : Blood Pressure : / mmHG Vent. Rate : 067 BPM Atrial Rate : 067 BPM P-R Int : 176 ms QRS Dur : 074 ms QT Int : 420 ms P-R-T Axes : 064 022 046 degrees QTc Int : 443 ms NORMAL SINUS RHYTHM NONSPECIFIC ST ABNORMALITY ABNORMAL ECG WHEN COMPARED WITH ECG OF 27-MAY-2018 02:57, LEFT BUNDLE BRANCH BLOCK IS NO LONGER PRESENT Confirmed by MELLY CLANCY MD ([id number]) on 10/22/2018 1:22:04 PM Referred By: FRANCISCA JONES Confirmed By:MELLY CLANCY MD
[2018-10-22] MEDS ORDERED: PT OWN MED DRAWER 7, Y5N ONE (15:30)
[2018-10-22] MEDS: TIMOLOL MALEATE 0.5% GFS OPHTHALMIC SOLN 5 ML BOTTLE OU SCH (15:31)
[2018-10-22 18:31] LABS: CALCIUM 8.6 mg/dl (8.5-10); CREATININE 0.9 mg/dl (0.55-1.3); POTASSIUM 4.5 mmol/L (3.5-5.1)
[2018-10-23 08:43] LABS: BASO % 0.6 % (0-2.0); EOS % 0.8 % (0-4.5); HEMATOCRIT 33.4 % (32.4-45.2); HEMOGLOBIN 11.3 GM/dl (10.7-15.3); LYMPH % 26.9 % (8-40); MCH 32.5 pg (25.7-33.7); MCHC 33.7 g/dl (32.0-36.0); MEAN CELL VOLUME 96.4 fl (80-96); MEAN PLT VOLUME 7.7 fl (7.5-11.1); MONO % 10.1 % (3.8-10.2); NEUT % 61.6 % (42.8-82.8); PLATELET COUNT 153 K/MM3 (134-434); RBC 3.47 M/mm3 (3.60-5.2); WHITE BLOOD COUNT 5.2 K/mm3 (4.0-10.8)
[2018-10-23] MEDS ORDERED: PT OWN MED DRAWER 7, Y5N ONE ×2 (09:40→09:55)
[2018-10-23] MEDS: APIXABAN 5 MG TABLET PO SCH ×2 (09:42→22:11)
[2018-10-23] MEDS: GABAPENTIN 300 MG CAPSULE (FP) PO SCH ×2 (09:42→22:11)
[2018-10-23] MEDS: SOTALOL HCL 80 MG TABLET (FP) PO SCH ×3 (09:42→22:10)
[2018-10-23] MEDS: TIMOLOL MALEATE 0.5% GFS OPHTHALMIC SOLN 5 ML BOTTLE OU SCH (09:49)
--- NOTE | 2018-10-23 10:23 | PN ---
Progress Note, Physician Chief Complaint: AWAKE ALERT EVENTS AND NOTES REVIEWED PATIENT DENIES CP/SOB + HEADACHE WITH DIZZINESS HAS SUBSIDED - Current Medication List Current Medications: Active Medications Alprazolam (Xanax -) 0.5 mg PO TID PRN PRN Reason: ANXIETY Apixaban (Eliquis -) 5 mg PO BID [facility] Last Admin: 10/23/18 09:42 Dose: 5 mg Gabapentin (Neurontin -) 600 mg PO BID [facility] Last Admin: 10/23/18 09:42 Dose: 600 mg Sodium Chloride (Normal Saline -) 1,000 mls @ 35 mls/hr IV ASDIR [facility] Last Admin: 10/22/18 13:12 Dose: 35 mls/hr Meclizine HCl (Antivert -) 25 mg PO TID PRN PRN Reason: VERTIGO Sotalol HCl (Betapace -) 160 mg PO BID [facility] Last Admin: 10/23/18 09:42 Dose: 160 mg Timolol Maleate (Timoptic Xe 0.5%) 1 drop OU DAILY [facility] Last Admin: 10/23/18 09:49 Dose: 1 drop - Objective Vital Signs: Vital Signs Temperature 97.8 F 10/23/18 05:00 Pulse Rate 64 10/23/18 05:00 Respiratory Rate 18 10/23/18 08:21 Blood Pressure 121/61 10/23/18 05:00 O2 Sat by Pulse Oximetry (%) 100 10/23/18 08:21 Constitutional: Yes: Mild Distress Eyes: Yes: WNL HENT: Yes: WNL Neck: Yes: WNL Cardiovascular: Yes: Regular Rate and Rhythm Respiratory: Yes: WNL Gastrointestinal: Yes: WNL Genitourinary: Yes: WNL Edema: No Peripheral Pulses WNL: Yes Integumentary: Yes: WNL Wound/Incision: Yes: Clean/Dry Neurological: Yes: WNL ...Motor Strength: WNL Psychiatric: Yes: WNL Labs: CBC, BMP 10/23/18 07:50 10/22/18 18:00 Problem List - Problems (1) Diabetes Code(s): E11.9 - TYPE 2 DIABETES MELLITUS WITHOUT COMPLICATIONS (2) HTN (hypertension) Code(s): I10 - ESSENTIAL (PRIMARY) HYPERTENSION (3) Hyponatremia Code(s): E87.1 - HYPO-OSMOLALITY AND HYPONATREMIA (4) Nausea and vomiting Code(s): R11.2 - NAUSEA WITH VOMITING, UNSPECIFIED Qualifiers: Vomiting type: unspecified Vomiting Intractability: non-intractable Qualified Code(s): R11.2 - Nausea with vomiting, unspecified Assessment/Plan NA+ IMPROVING RENAL F/U APPRECIATED PT EVAL OOB TO CHAIR DENIES N/V TODAY
[2018-10-23 10:38] LABS: CALCIUM 8.7 mg/dl (8.5-10); CREATININE 0.8 mg/dl (0.55-1.3); POTASSIUM 4.4 mmol/L (3.5-5.1)
[2018-10-23] MEDS: SODIUM CHLORIDE 1,000 ML IV SCH (13:30)
--- NOTE | 2018-10-23 18:52 | PN ---
Progress Note (short form) - Note Progress Note: covering dr dunlap 1. Hyponatremia 2. DM 3. HTN 4. nausea and vomiting - now improved 5. DM serum sodium improved from Na+ 127 Last Vital Signs Temp Pulse Resp BP Pulse Ox 98.3 F 72 18 116/50 L 100 10/23/18 18:00 10/23/18 18:00 10/23/18 18:00 10/23/18 18:00 10/23/18 18:00 labs checked CBC, BMP 10/23/18 07:50 10/23/18 07:50 Current Medications Alprazolam (Xanax -) 0.5 mg PO TID PRN PRN Reason: ANXIETY Apixaban (Eliquis -) 5 mg PO BID [facility] Last Admin: 10/23/18 09:42 Dose: 5 mg Gabapentin (Neurontin -) 600 mg PO BID [facility] Last Admin: 10/23/18 09:42 Dose: 600 mg Sodium Chloride (Normal Saline -) 1,000 mls @ 35 mls/hr IV ASDIR [facility] Last Admin: 10/23/18 13:30 Dose: 35 mls/hr Meclizine HCl (Antivert -) 25 mg PO TID PRN PRN Reason: VERTIGO Sotalol HCl (Betapace -) 160 mg PO BID [facility] Last Admin: 10/23/18 11:57 Dose: 160 mg Timolol Maleate (Timoptic Xe 0.5%) 1 drop OU DAILY [facility] Last Admin: 10/23/18 09:49 Dose: 1 drop
--- NOTE | 2018-10-24 08:59 | PN ---
Progress Note, Physician Chief Complaint: AWAKE ALERT X 3 FEELS BETTER LOW BP ON ADMISSION +DIZZINESS - Current Medication List Current Medications: Active Medications Alprazolam (Xanax -) 0.5 mg PO TID PRN PRN Reason: ANXIETY Apixaban (Eliquis -) 5 mg PO BID [facility] Last Admin: 10/23/18 22:11 Dose: 5 mg Gabapentin (Neurontin -) 600 mg PO BID [facility] Last Admin: 10/23/18 22:11 Dose: 600 mg Sodium Chloride (Normal Saline -) 1,000 mls @ 35 mls/hr IV ASDIR [facility] Last Admin: 10/23/18 13:30 Dose: 35 mls/hr Meclizine HCl (Antivert -) 25 mg PO TID PRN PRN Reason: VERTIGO Sotalol HCl (Betapace -) 80 mg PO BID [facility] Timolol Maleate (Timoptic Xe 0.5%) 1 drop OU DAILY [facility] Last Admin: 10/23/18 09:49 Dose: 1 drop - Objective Vital Signs: Vital Signs Temperature 97.4 F L 10/24/18 06:00 Pulse Rate 56 L 10/24/18 06:00 Respiratory Rate 10/24/18 06:00 Blood Pressure 104/45 L 10/24/18 06:00 O2 Sat by Pulse Oximetry (%) 100 10/24/18 06:00 Constitutional: Yes: Mild Distress Eyes: Yes: WNL HENT: Yes: WNL Neck: Yes: WNL Cardiovascular: Yes: Pulse Irregular Respiratory: Yes: Regular Gastrointestinal: Yes: WNL Musculoskeletal: Yes: Other Extremities: Yes: WNL Edema: No Peripheral Pulses WNL: Yes Integumentary: Yes: WNL Wound/Incision: Yes: Clean/Dry Neurological: Yes: WNL ...Motor Strength: WNL Psychiatric: Yes: WNL Labs: CBC, BMP 10/23/18 07:50 10/23/18 07:50 Problem List - Problems (1) Diabetes Code(s): E11.9 - TYPE 2 DIABETES MELLITUS WITHOUT COMPLICATIONS (2) HTN (hypertension) Code(s): I10 - ESSENTIAL (PRIMARY) HYPERTENSION (3) Hyponatremia Code(s): E87.1 - HYPO-OSMOLALITY AND HYPONATREMIA (4) Nausea and vomiting Code(s): R11.2 - NAUSEA WITH VOMITING, UNSPECIFIED Qualifiers: Vomiting type: unspecified Vomiting Intractability: non-intractable Qualified Code(s): R11.2 - Nausea with vomiting, unspecified Assessment/Plan DECREASE SOTOLOL TO 80MG BID MONITOR BP/HR, NO ALARMS ON TELE EXCEPT FOR A FEW PVC. AWAITING MORNING LABS PT EVAL IVF NA+ 133 YESTERDAYIF BP NORMALIZES AND DIZZINESS, NA+ IMPROVED CAN DC TOMORROW WITH PLATEN BUILDER UP
[2018-10-24 09:32] LABS: CALCIUM 8.6 mg/dl (8.5-10); CREATININE 0.8 mg/dl (0.55-1.3); POTASSIUM 4.4 mmol/L (3.5-5.1)
[2018-10-24] MEDS ORDERED: PT OWN MED DRAWER 7, Y5N ONE (09:34)
[2018-10-24] MEDS: GABAPENTIN 300 MG CAPSULE (FP) PO SCH ×2 (09:39→22:26)
[2018-10-24] MEDS: APIXABAN 5 MG TABLET PO SCH ×2 (09:39→22:26)
[2018-10-24] MEDS: SOTALOL HCL 80 MG TABLET (FP) PO SCH ×2 (09:39→22:26)
[2018-10-24] MEDS: TIMOLOL MALEATE 0.5% GFS OPHTHALMIC SOLN 5 ML BOTTLE OU SCH (09:39)
[2018-10-24] MEDS: SODIUM CHLORIDE 1,000 ML IV SCH (13:00)
--- NOTE | 2018-10-24 13:58 | PN ---
Progress Note (short form) - Note Progress Note: covering dr dunlap 1. Hyponatremia 2. DM 3. HTN 4. nausea and vomiting - now improved 5. DM labs improved Hyponatremia is resolving BMP 10/24/18 06:30 Current Medications Alprazolam (Xanax -) 0.5 mg PO TID PRN PRN Reason: ANXIETY Apixaban (Eliquis -) 5 mg PO BID [facility] Last Admin: 10/24/18 09:39 Dose: 5 mg Gabapentin (Neurontin -) 600 mg PO BID [facility] Last Admin: 10/24/18 09:39 Dose: 600 mg Sodium Chloride (Normal Saline -) 1,000 mls @ 35 mls/hr IV ASDIR [facility] Last Admin: 10/23/18 13:30 Dose: 35 mls/hr Meclizine HCl (Antivert -) 25 mg PO TID PRN PRN Reason: VERTIGO Sotalol HCl (Betapace -) 80 mg PO BID [facility] Last Admin: 10/24/18 09:39 Dose: 80 mg Timolol Maleate (Timoptic Xe 0.5%) 1 drop OU DAILY [facility] Last Admin: 10/24/18 09:39 Dose: 1 drop Last Vital Signs Temp Pulse Resp BP Pulse Ox 97.6 F 58 L 18 129/53 L 96 10/24/18 09:43 10/24/18 09:43 10/24/18 09:43 10/24/18 09:43 10/24/18 09:43 Lungs clear Heart reg Abd soft Ext no edema IMPression resolving hyponatremia Agree with D/c plans will sign off today
[2018-10-25 06:46] VITALS: BP 145/68; PULSE 73; TEMP 97.5
--- NOTE | 2018-10-25 08:04 | DS ---
Physical Examination Vital Signs: Vital Signs Temperature 97.5 F L 10/25/18 06:00 Pulse Rate 73 10/25/18 06:00 Respiratory Rate 17 10/25/18 06:00 Blood Pressure 145/68 10/25/18 06:00 O2 Sat by Pulse Oximetry (%) 100 10/25/18 06:00 Cardiovascular: Yes: Regular Rate and Rhythm Respiratory: Yes: Regular, CTA Bilaterally Gastrointestinal: Yes: Normal Bowel Sounds, Soft. No: Tenderness Labs: CBC, BMP 10/23/18 07:50 Discharge Summary Reason For Visit: HYPONATREMIA Current Active Problems Diabetes (Acute) HTN (hypertension) (Acute) Hyponatremia (Acute) Nausea and vomiting (Acute) Hospital Course: - Problems (1) Hyponatremia Assessment/Plan: maybe due to gi loss dc ivf monitor renal consult noted Code(s): E87.1 - HYPO-OSMOLALITY AND HYPONATREMIA (2) Diabetes Assessment/Plan: monitor bgm--ss Code(s): E11.9 - TYPE 2 DIABETES MELLITUS WITHOUT COMPLICATIONS (3) HTN (hypertension) Assessment/Plan: -monitor on sotolol--lower dose check ekg hold aldactone Code(s): I10 - ESSENTIAL (PRIMARY) HYPERTENSION (4) Nausea and vomiting Assessment/Plan: -resolved monitor Code(s): R11.2 - NAUSEA WITH VOMITING, UNSPECIFIED Qualifiers: Vomiting type: unspecified Vomiting Intractability: non-intractable Qualified Code(s): R11.2 - Nausea with vomiting, unspecified Condition: Improved - Instructions Disposition: HOME - Home Medications Comprehensive Discharge Medication List: Ambulatory Orders Simvastatin [Zocor -] 40 mg PO HS 09/16/12 Olopatadine HCl [Pataday] 1 drop OU BID 02/13/15 Omeprazole [Prilosec (RX)] 1 tab PO DAILY PRN 02/13/15 Timolol Maleate 0.5% Gfs [Timoptic Xe 0.5%] 1 drop OU DAILY 02/13/15 Apixaban [Eliquis] 5 mg PO BID 02/14/15 Cyclosporine [Restasis] 1 drp OU DAILY 11/22/16 Calcium Carbonate/Vitamin D3 [Calcium 600 + Vit D Tablet] 2 each PO DAILY Linaclotide [Linzess] 145 mcg PO DAILY 05/12/18 Meclizine HCl [Antivert -] 25 mg PO PRN PRN 05/12/18 Tramadol HCl 50 mg PO PRN PRN 05/12/18 Dextran 70/Hypromellose/Pf [Genteal Tears 0.1%-0.3% Drop] 1 drop OU DAILY Gabapentin 600 mg PO BID 07/01/18 Propylene Glycol/Peg 400/Pf [Systane 0.3-0.4% Eye Drop] 1 each OU DAILY Psyllium Husk [Metamucil] 0.4 gm PO DAILY 10/22/18 Sotalol HCl [Betapace -] 80 mg PO BID #60 tablet 10/25/18
[2018-10-25 08:19] LABS: CALCIUM 9.4 mg/dl (8.5-10); CREATININE 0.8 mg/dl (0.55-1.3); POTASSIUM 4.2 mmol/L (3.5-5.1)
[2018-10-25] MEDS ORDERED: PT OWN MED DRAWER 7, Y5N ONE (10:32)
[2018-10-25] MEDS: APIXABAN 5 MG TABLET PO SCH (10:48)
[2018-10-25] MEDS: SOTALOL HCL 80 MG TABLET (FP) PO SCH (10:48)
[2018-10-25] MEDS: GABAPENTIN 300 MG CAPSULE (FP) PO SCH (10:48)
[2018-10-25] MEDS: TIMOLOL MALEATE 0.5% GFS OPHTHALMIC SOLN 5 ML BOTTLE OU SCH (10:49)
--- NOTE | 2018-10-26 14:45 | EKG ---
Test Reason : Blood Pressure : / mmHG Vent. Rate : 063 BPM Atrial Rate : 063 BPM P-R Int : 168 ms QRS Dur : 140 ms QT Int : 432 ms P-R-T Axes : 042 -35 079 degrees QTc Int : 442 ms NORMAL SINUS RHYTHM LEFT AXIS DEVIATION LEFT BUNDLE BRANCH BLOCK ABNORMAL ECG WHEN COMPARED WITH ECG OF 22-OCT-2018 02:17, LEFT BUNDLE BRANCH BLOCK IS NOW PRESENT Confirmed by Fabian Garcia MD [id number]) on 10/26/2018 2:45:11 PM Referred By: MD AMARO Confirmed By:Fabian Garcia MD
[2018-10-28 11:57] LABS: SERUM IRON SATURATION 61; TOTAL IRON BINDING CAPACITY 221
== END 2018-10-25 14:38 | disposition home or self-care (01) | DRG 641 ==
LOC: FER 00:17 → FM/S 02:02 → UNDOADMIN 05:19 → FM/S 05:19
PROVIDERS: ADMIT Internal Medicine; ATTEND Family Medicine
DX: E87.1 Hypo-osmolality and hyponatremia (principal); I10 Essential (primary) hypertension; E78.5 Hyperlipidemia, unspecified; E11.9 Type 2 diabetes mellitus without complications; R11.2 Nausea with vomiting, unspecified; K21.9 Gastro-esophageal reflux disease without esophagitis; I25.10 Atherosclerotic heart disease of native coronary artery without angina pectoris; K59.00 Constipation, unspecified; R51 Headache; Z85.038 Personal history of other malignant neoplasm of large intestine; Z85.43 Personal history of malignant neoplasm of ovary
CPT/HCPCS: 36415; 70450-TC; 71045-TC-FY; 80048; 80053; 82436; 82550; 82728; 82962; 83036; 83540; 83550; 83930; 83935; 84133; 84300; 84443; 84484; 85025; 93005; 97116-GP; 97161-GP; 99284-25; J7030

== ENCOUNTER 2020-10-16 00:11 | Emergency (ER) | payer OTHER ==
[2020-10-16 00:50] VITALS: BMI 27.4
[2020-10-16] MEDS ORDERED: ACETAMINOPHEN 500 MG TABLET (FP) PO ONE (01:25)
[2020-10-16] MEDS ORDERED: ACETAMINOPHEN 325 MG TABLET (FP) ONE (01:36)
[2020-10-16 02:40] LABS: BASO % 0.7 % (0-2.0); EOS % 1.3 % (0-4.5); HEMATOCRIT 35.2 % (32.4-45.2); HEMOGLOBIN 11.9 GM/dL (10.7-15.3); LYMPH % 19.4 % (8-40); MCH 31.9 pg (25.7-33.7); MCHC 33.7 g/dl (32.0-36.0); MEAN CELL VOLUME 94.7 fl (80-96); MEAN PLT VOLUME 7.7 fl (7.5-11.1); MONO % 8.3 % (3.8-10.2); NEUT % 70.3 % (42.8-82.8); PLATELET COUNT 194 10^3/uL (134-434); RBC 3.72 M/mm3 (3.60-5.2); RDW 13.6 % (11.6-15.6); WHITE BLOOD COUNT 8.1 K/mm3 (4.0-10.0)
[2020-10-16 02:56] LABS: CHLORIDE 95 mmol/L (98-107); SODIUM 131 mmol/L (136-145)
[2020-10-16 02:58] LABS: CALCIUM 9.3 mg/dL (8.5-10.1)
[2020-10-16 02:59] LABS: ANION GAP 9 MMOL/L (8-16); BLOOD UREA NITROGEN 27.8 mg/dL (7-18); CO2 27 mmol/L (21-32); GLUCOSE,RANDOM 106 mg/dL (74-106); INR 1.67 (0.83-1.09); PROTHROMBIN TIME (PATIENT) 20.2 SEC (9.7-13.0)
[2020-10-16 03:01] LABS: ACTIVATED PTT 34.6 SECONDS (25.2-36.5)
[2020-10-16 03:02] LABS: CREATININE 1.2 mg/dL (0.55-1.3); SGOT/AST 34 U/L (15-37); SGPT/ALT 20 U/L (13-61)
[2020-10-16 03:04] LABS: BILIRUBIN,TOTAL 0.8 mg/dL (0.2-1); TOT PROT 7.9 g/dl (6.4-8.2)
[2020-10-16 03:05] LABS: ALK PHOS 86 U/L (45-117)
[2020-10-16] MEDS ORDERED: SODIUM CHLORIDE 0.9% 500 ML INFUS.BAG IV ONE (04:59)
[2020-10-16 05:28] VITALS: BP 136/93; PULSE 62; TEMP 97.7
[2020-10-16 06:11] LABS: CALCIUM 8.8 mg/dL (8.5-10.1)
[2020-10-16 06:12] LABS: BLOOD UREA NITROGEN 29.2 mg/dL (7-18)
[2020-10-16 06:23] LABS: CREATININE 1.2 mg/dL (0.55-1.3)
== END 2020-10-16 06:40 | disposition home or self-care (01) ==
LOC: JER 00:11
DX: M79.602 Pain in left arm (principal); E87.1 Hypo-osmolality and hyponatremia
CPT/HCPCS: 36415; 71046-TC-FY; 73070-TC-LT-FY; 80048; 80053; 82550; 84484; 85025; 85610; 85730; 93005; 93010; 99285-25

== ENCOUNTER 2021-10-11 00:27 | Emergency (ER) | payer OTHER ==
[2021-10-11 00:33] VITALS: BP 136/65; PULSE 70; TEMP 98.3; BMI 27.3
[2021-10-11 01:25] LABS: BASO % 0.4 % (0-2.0); EOS % 1.2 % (0-4.5); HEMATOCRIT 33.6 % (32.4-45.2); HEMOGLOBIN 11.4 GM/dL (10.7-15.3); LYMPH % 27.1 % (8-40); MCH 32.4 pg (25.7-33.7); MCHC 33.9 g/dl (32.0-36.0); MEAN CELL VOLUME 95.6 fl (80-96); MEAN PLT VOLUME 7.9 fl (7.5-11.1); MONO % 9.8 % (3.8-10.2); NEUT % 61.5 % (42.8-82.8); PLATELET COUNT 185 10^3/uL (134-434); RBC 3.51 M/mm3 (3.60-5.2); RDW 13.4 % (11.6-15.6); WHITE BLOOD COUNT 5.7 K/mm3 (4.0-10.0)
== END 2021-10-11 02:00 | disposition home or self-care (01) ==
LOC: FER 00:27
DX: T14.8XXA Other injury of unspecified body region, initial encounter (principal)
CPT/HCPCS: 36415; 85025; 99283-25

== ENCOUNTER 2021-11-05 18:08 | Emergency (ER) | payer OTHER ==
[2021-11-05 18:29] VITALS: BP 151/67; PULSE 67; RESP 20; TEMP 98.4; BMI 26.2
== END 2021-11-05 20:11 | disposition home or self-care (01) ==
LOC: FER 18:08
DX: H43.391 Other vitreous opacities, right eye (principal)
CPT/HCPCS: 70450-TC; 99284-25

== ENCOUNTER 2022-05-21 04:06 | Day surgery (SDC) | payer OTHER ==
[2022-05-16 14:53] VITALS: BMI 25.3
[2022-05-21 06:47] VITALS: RESP 18
[2022-05-21] MEDS ORDERED: LIDOCAINE HCL 1%, 10 MG/ML (20ML VIAL) ONE (07:26)
[2022-05-21] MEDS ORDERED: BUPIVACAINE HCL/PF 0.5% (5MG/ML) 10 ML VIAL ONE (07:27)
[2022-05-21] MEDS ORDERED: PROPOFOL 40 ML ONE (07:29)
[2022-05-21] MEDS ORDERED: LIDOCAINE HCL 1%, 10 MG/ML (20ML VIAL) INF ONE ×2 (07:42)
[2022-05-21] MEDS ORDERED: BUPIVACAINE HCL/PF 0.5% (5MG/ML) 10 ML VIAL IJ ONE ×2 (07:44)
[2022-05-21] MEDS ORDERED: ceFAZolin 2 GRAM PREMIX BAG IVPB ONE (08:17)
[2022-05-21] MEDS ORDERED: oxyCODONE HCL 5 MG TABLET PO PRN (09:27)
[2022-05-21] MEDS ORDERED: PROMETHAZINE HCL 25 MG/1 ML VIAL IVPB PRN (09:27)
[2022-05-21 10:51] VITALS: BP 119/63; PULSE 61; TEMP 97.7
== END 2022-05-21 10:35 | disposition home or self-care (01) ==
LOC: JASU-SURG 04:06
PROVIDERS: ATTEND Orthopaedic Surgery
PROC: 01N50ZZ Release Median Nerve, Open Approach (ICD-10-PCS; principal; 2022-05-21 08:00)
DX: G56.01 Carpal tunnel syndrome, right upper limb (principal)
CPT/HCPCS: 82962; 88304-TC; 94760

== ENCOUNTER 2022-07-19 15:56 | Emergency (ER) | payer OTHER ==
[2022-07-19 16:07] VITALS: RESP 16; TEMP 98.1; BMI 24.0
[2022-07-19] MEDS ORDERED: ACETAMINOPHEN 1000 MG/100 ML BAG IVPB ONE (16:40)
[2022-07-19] MEDS ORDERED: LIDOCAINE 5% TOPICAL PATCH TP ONE (16:40)
[2022-07-19] MEDS ORDERED: LIDOCAINE 5% TOPICAL PATCH ONE (17:13)
[2022-07-19 17:22] LABS: BASO % 0.5 % (0-2.0); EOS % 0.5 % (0-4.5); HEMATOCRIT 31.3 % (32.4-45.2); HEMOGLOBIN 10.8 GM/dL (10.7-15.3); LYMPH % 28.5 % (8-40); MCH 32.6 pg (25.7-33.7); MCHC 34.3 g/dl (32.0-36.0); MEAN CELL VOLUME 94.9 fl (80-96); MEAN PLT VOLUME 7.2 fl (7.5-11.1); MONO % 10.1 % (3.8-10.2); NEUT % 60.4 % (42.8-82.8); PLATELET COUNT 179 10^3/uL (134-434); RDW 14.1 % (11.6-15.6); WHITE BLOOD COUNT 5.3 K/mm3 (4.0-10.0)
[2022-07-19 17:33] LABS: INR 1.66 (0.83-1.09); PROTHROMBIN TIME (PATIENT) 19.2 SEC (9.7-13.0)
[2022-07-19 17:35] LABS: ACTIVATED PTT 39.1 SECONDS (25.2-36.5)
[2022-07-19 17:43] LABS: ALBUMIN 3.2 g/dl (3.4-5.0); CALCIUM 9.2 mg/dL (8.5-10.1)
[2022-07-19 17:44] LABS: BLOOD UREA NITROGEN 20.9 mg/dL (7-18)
[2022-07-19 17:46] LABS: CREATININE 0.9 mg/dL (0.55-1.3); PHOSPHOROUS 3.5 mg/dL (2.5-4.9)
[2022-07-19 17:48] LABS: BILIRUBIN,TOTAL 0.5 mg/dL (0.2-1)
[2022-07-19] MEDS ORDERED: KETOROLAC TROMETHAMINE 15 MG/ML VIAL IVPUSH ONE (18:40)
[2022-07-19 18:46] VITALS: BP 132/60; PULSE 85
[2022-07-19] MEDS ORDERED: KETOROLAC TROMETHAMINE 15 MG/ML VIAL ONE (18:51)
[2022-07-20] MEDS ORDERED: LIDOCAINE PATCH REMOVAL MC SCH (05:00)
== END 2022-07-19 18:58 | disposition home or self-care (01) ==
LOC: JER 15:56
PROC: 3E033NZ Introduction of Analgesics, Hypnotics, Sedatives into Peripheral Vein, Percutaneous Approach (ICD-10-PCS; principal; 2022-07-19)
PROC: 3E0333Z Introduction of Anti-inflammatory into Peripheral Vein, Percutaneous Approach (ICD-10-PCS; 2022-07-19)
DX: S09.90XA Unspecified injury of head, initial encounter (principal); S80.12XA Contusion of left lower leg, initial encounter; W17.89XA Other fall from one level to another, initial encounter; Y92.002 Bathroom of unspecified non-institutional (private) residence as the place of occurrence of the external cause; Z20.822 Contact with and (suspected) exposure to COVID-19
CPT/HCPCS: 0241U-QW; 36415; 70450-TC; 71045-TC-FY; 72125-TC; 73590-TC-LT-FY; 80053; 83735; 84100; 84484; 85025; 85610; 85730; 93005; 93010; 96374; 96375; 99285-25

== ENCOUNTER 2022-08-04 04:14 | Day surgery (SDC) | payer OTHER ==
[2022-08-01 13:05] VITALS: BMI 25.3
[~2022-08-04 04:14] MED LIST: BUPIVACAINE HCL/PF 0.5% (5MG/ML) 10 ML VIAL IJ ONE; LIDOCAINE HCL 1%, 10 MG/ML (20ML VIAL) NR ONE
[2022-08-04] MEDS ORDERED: BUPIVACAINE HCL/PF 0.5% (5MG/ML) 10 ML VIAL ONE (13:01)
[2022-08-04] MEDS ORDERED: oxyCODONE HCL 5 MG TABLET PO PRN (13:13)
[2022-08-04] MEDS ORDERED: ONDANSETRON 4 MG/2 ML VIAL IVPUSH PRN (13:13)
[2022-08-04] MEDS ORDERED: LACTATED RINGERS SOLUTION 1,000 ML IV SCH (13:15)
[2022-08-04] MEDS ORDERED: MIDAZOLAM HCL 2 MG/2 ML SINGLE DOSE VIAL ONE (13:30)
[2022-08-04] MEDS ORDERED: ceFAZolin SODIUM 1 GM VIAL IVPB ONE (13:37)
[2022-08-04] MEDS ORDERED: PROPOFOL 20 ML ONE (13:38)
[2022-08-04] MEDS ORDERED: LIDOCAINE HCL 1%, 10 MG/ML (20ML VIAL) NR ONE (13:45)
[2022-08-04] MEDS ORDERED: BUPIVACAINE HCL/PF 0.5% (5MG/ML) 10 ML VIAL IJ ONE (13:45)
[2022-08-04 16:44] VITALS: RESP 20
[2022-08-04 18:29] VITALS: BP 108/46; PULSE 55; TEMP 97
== END 2022-08-04 17:45 | disposition home or self-care (01) ==
LOC: JASU-SURG 04:14
PROVIDERS: ATTEND Orthopaedic Surgery
PROC: 01N50ZZ Release Median Nerve, Open Approach (ICD-10-PCS; principal; 2022-08-04 13:15)
DX: G56.02 Carpal tunnel syndrome, left upper limb (principal)
CPT/HCPCS: 82962; 88304-TC; 94760

== ENCOUNTER 2023-02-13 23:14 | Inpatient (IN) | payer OTHER ==
[2023-02-14] MEDS ORDERED: ACETAMINOPHEN 500 MG TABLET (FP) PO ONE (00:21)
[2023-02-14] MEDS ORDERED: ACETAMINOPHEN 325 MG TABLET (FP) ONE (00:43)
[2023-02-14 01:08] LABS: BASO % 0.3 % (0-2.0); EOS % 0.9 % (0-4.5); HEMATOCRIT 34.5 % (32.4-45.2); HEMOGLOBIN 11.8 GM/dL (10.7-15.3); LYMPH % 29.9 % (8-40); MCH 32.2 pg (25.7-33.7); MCHC 34.3 g/dl (32.0-36.0); MEAN PLT VOLUME 7.2 fl (7.5-11.1); MONO % 9.3 % (3.8-10.2); NEUT % 59.6 % (42.8-82.8); PLATELET COUNT 184 10^3/uL (134-434); RBC 3.67 M/mm3 (3.60-5.2); RDW 13.1 % (11.6-15.6); WHITE BLOOD COUNT 4.8 K/mm3 (4.0-10.0)
[2023-02-14 01:31] LABS: POTASSIUM 4.7 mmol/L (3.5-5.1)
[2023-02-14 01:33] LABS: CALCIUM 9.1 mg/dL (8.5-10.1)
[2023-02-14 01:34] LABS: ALBUMIN 3.5 g/dl (3.4-5.0); BLOOD UREA NITROGEN 23.3 mg/dL (7-18)
[2023-02-14 01:37] LABS: CREATININE 0.9 mg/dL (0.55-1.3)
[2023-02-14 01:39] LABS: BILIRUBIN,TOTAL 0.7 mg/dL (0.2-1); TOT PROT 7.4 g/dl (6.4-8.2)
[2023-02-14] MEDS ORDERED: SODIUM CHLORIDE 0.9% 500 ML INFUS.BAG IV ONE (01:57)
[2023-02-14 03:13] LABS: EPI CELLS 4 /uL (0-25.1); HYALINE CASTS 0 /uL (0-3.1); URINE APPEARANCE CLEAR; URINE BACTERIA 10 /uL (0-1359); URINE BILIRUBIN NEGATIVE (NEGATIVE); URINE COLOR YELLOW; URINE GLUCOSE (UA) NEGATIVE (NEGATIVE); URINE KETONE NEGATIVE (NEGATIVE); URINE LEUK ESTERASE TRACE (NEGATIVE); URINE NITRITE NEGATIVE (NEGATIVE); URINE PROTEIN NEGATIVE (NEGATIVE); URINE RBC 50 /uL (0-23.9); URINE UROBILINOGEN 0.2 mg/dL (0.2-1.0); URINE WBC 8 /uL (0-25.8)
[2023-02-14] MEDS ORDERED: HEPARIN NA (PORCINE) 5,000 UNITS/ML 1ML VIAL ONE (05:46)
[2023-02-14] MEDS ORDERED: HEPARIN NA (PORCINE) 5,000 UNITS/ML 1ML VIAL SQ SCH (06:00)
[2023-02-14] MEDS: LACTATED RINGERS SOLUTION 1,000 ML IV SCH (06:42)
[2023-02-14] MEDS: INSULIN SLIDING SCALE (NOVOLOG) 1 VIAL SQ SCH ×4 (08:37→22:49)
[2023-02-14] MEDS ORDERED: LISINOPRIL 10 MG TABLET ONE (09:57)
[2023-02-14] MEDS ORDERED: amLODIPine BESYLATE 5 MG TABLET (FP) ONE (09:57)
[2023-02-14] MEDS ORDERED: APIXABAN 5 MG TABLET ONE (09:57)
[2023-02-14] MEDS: amLODIPine BESYLATE 5 MG TABLET (FP) PO SCH (10:12)
[2023-02-14] MEDS: APIXABAN 5 MG TABLET PO SCH ×2 (10:12→22:46)
[2023-02-14] MEDS: LISINOPRIL 10 MG TABLET PO SCH (10:12)
[2023-02-14] MEDS: SOTALOL HCL 80 MG TABLET (FP) PO SCH ×2 (12:06→22:47)
[2023-02-14 12:40] LABS: POTASSIUM 4.3 mmol/L (3.5-5.1)
[2023-02-14 12:42] LABS: CALCIUM 9.1 mg/dL (8.5-10.1)
[2023-02-14 12:45] LABS: CREATININE 0.8 mg/dL (0.55-1.3)
[2023-02-14 21:02] VITALS: RESP 18; BMI 23.0
[2023-02-14] MEDS: ATORVASTATIN CA 20 MG TABLET (FP) PO SCH (22:46)
[2023-02-15] MEDS: INSULIN SLIDING SCALE (NOVOLOG) 1 VIAL SQ SCH ×4 (06:50→21:54)
[2023-02-15] MEDS: LACTATED RINGERS SOLUTION 1,000 ML IV SCH (06:50)
[2023-02-15 09:28] LABS: HEMATOCRIT 32.8 % (32.4-45.2); HEMOGLOBIN 10.9 GM/dL (10.7-15.3); MCH 31.9 pg (25.7-33.7); MCHC 33.2 g/dl (32.0-36.0); MEAN PLT VOLUME 7.6 fl (7.5-11.1); PLATELET COUNT 168 10^3/uL (134-434); RBC 3.42 M/mm3 (3.60-5.2); RDW 12.8 % (11.6-15.6); WHITE BLOOD COUNT 4.8 K/mm3 (4.0-10.0)
[2023-02-15 09:47] LABS: POTASSIUM 4.5 mmol/L (3.5-5.1)
[2023-02-15 09:49] LABS: CALCIUM 8.7 mg/dL (8.5-10.1)
[2023-02-15 09:50] LABS: ALBUMIN 2.9 g/dl (3.4-5.0)
[2023-02-15 09:54] LABS: BLOOD UREA NITROGEN 12.4 mg/dL (7-18)
[2023-02-15 09:57] LABS: CREATININE 0.8 mg/dL (0.55-1.3); TOT PROT 6.1 g/dl (6.4-8.2)
[2023-02-15 09:58] LABS: BILIRUBIN,TOTAL 0.9 mg/dL (0.2-1)
[2023-02-15] MEDS: APIXABAN 5 MG TABLET PO SCH ×2 (10:14→21:48)
[2023-02-15] MEDS: amLODIPine BESYLATE 5 MG TABLET (FP) PO SCH (10:14)
[2023-02-15] MEDS: LISINOPRIL 10 MG TABLET PO SCH (10:14)
[2023-02-15] MEDS: SOTALOL HCL 80 MG TABLET (FP) PO SCH ×2 (10:15→21:48)
[2023-02-15] MEDS: ATORVASTATIN CA 20 MG TABLET (FP) PO SCH (21:48)
[2023-02-16] MEDS: INSULIN SLIDING SCALE (NOVOLOG) 1 VIAL SQ SCH ×2 (06:05→13:05)
[2023-02-16 09:08] VITALS: TEMP 97.8
[2023-02-16] MEDS: APIXABAN 5 MG TABLET PO SCH (09:26)
[2023-02-16] MEDS: amLODIPine BESYLATE 5 MG TABLET (FP) PO SCH (09:26)
[2023-02-16] MEDS: SOTALOL HCL 80 MG TABLET (FP) PO SCH (09:26)
[2023-02-16] MEDS: LISINOPRIL 10 MG TABLET PO SCH (09:26)
[2023-02-16] MEDS ORDERED: INSULIN (NOVOLOG) ASPART 100 UNITS/ML 10ML VIAL ONE (11:45)
[2023-02-16 13:46] VITALS: BP 143/73; PULSE 79
== END 2023-02-16 16:41 | disposition home or self-care (01) | DRG 641 ==
LOC: JER 23:14 → JERBED 02-14 04:10 → OBSVTOIN 02-14 04:32 → J6S 02-14 20:28
PROVIDERS: ADMIT Internal Medicine; ATTEND Family Medicine
DX: E87.1 Hypo-osmolality and hyponatremia (principal); E11.9 Type 2 diabetes mellitus without complications; I10 Essential (primary) hypertension; I48.91 Unspecified atrial fibrillation; Z79.01 Long term (current) use of anticoagulants; I44.7 Left bundle-branch block, unspecified; Z79.84 Long term (current) use of oral hypoglycemic drugs; R91.8 Other nonspecific abnormal finding of lung field
CPT/HCPCS: 0241U-QW; 36415; 70450-TC; 71045-TC-FY; 71250-TC; 74176-TC; 80048; 80053; 81003; 82962; 84443; 84484; 85025; 85027; 87086; 93005; 93010; 93880-TC; 97116-GP; 97162-GP; 99285-25; G0378; J1644

== ENCOUNTER 2023-03-22 18:23 | Emergency (ER) | payer OTHER ==
[2023-03-22 18:42] VITALS: RESP 18; BMI 21.7
[2023-03-22] MEDS ORDERED: SODIUM CHLORIDE 0.9% 500 ML INFUS.BAG IV ONE (21:12)
[2023-03-22] MEDS ORDERED: ACETAMINOPHEN 1000 MG/100 ML BAG IVPB ONE (21:12)
[2023-03-22] MEDS ORDERED: METOCLOPRAMIDE HCL INJECTION 10 MG/2 ML VIAL IVPUSH ONE (21:12)
[2023-03-22] MEDS ORDERED: FAMOTIDINE 20 MG/50 ML IVPB 20 MG/50 ML MG IVPB ONE ×2 (21:13→21:36)
[2023-03-22] MEDS ORDERED: METOCLOPRAMIDE HCL INJECTION 10 MG/2 ML VIAL ONE (21:35)
[2023-03-22] MEDS ORDERED: ACETAMINOPHEN INJECTION 100 ML IVPB ONE (21:36)
[2023-03-22 22:17] LABS: BASO % 0.4 % (0-2.0); EOS % 0.3 % (0-4.5); HEMATOCRIT 37.3 % (32.4-45.2); HEMOGLOBIN 12.2 GM/dL (10.7-15.3); LYMPH % 16.1 % (8-40); MCH 31.5 pg (25.7-33.7); MCHC 32.7 g/dl (32.0-36.0); MEAN CELL VOLUME 96.5 fl (80-96); MEAN PLT VOLUME 7.5 fl (7.5-11.1); MONO % 4.5 % (3.8-10.2); NEUT % 78.7 % (42.8-82.8); PLATELET COUNT 186 10^3/uL (134-434); RBC 3.86 M/mm3 (3.60-5.2); RDW 13.2 % (11.6-15.6); WHITE BLOOD COUNT 7.8 K/mm3 (4.0-10.0)
[2023-03-22 22:23] LABS: INR 1.64 (0.83-1.09); PROTHROMBIN TIME (PATIENT) 18.9 SEC (9.7-13.0)
[2023-03-22 22:26] LABS: ACTIVATED PTT 35.1 SECONDS (25.2-36.5)
[2023-03-22 22:33] LABS: POTASSIUM 4.1 mmol/L (3.5-5.1)
[2023-03-22 22:37] LABS: ALBUMIN 3.4 g/dl (3.4-5.0); BLOOD UREA NITROGEN 15.2 mg/dL (7-18); MAGNESIUM 2.1 mg/dL (1.8-2.4)
[2023-03-22 22:40] LABS: CREATININE 0.7 mg/dL (0.55-1.3)
[2023-03-22 22:42] LABS: BILIRUBIN,TOTAL 0.8 mg/dL (0.2-1); TOT PROT 7.2 g/dl (6.4-8.2)
[2023-03-22 22:45] LABS: N-TERMINAL BNP 1220.8 pg/ml (5-450)
[2023-03-23 00:08] VITALS: TEMP 98
[2023-03-23 02:02] VITALS: BP 134/76; PULSE 78
== END 2023-03-23 02:02 | disposition home or self-care (01) ==
LOC: JER 18:23
PROC: 3E033GC Introduction of Other Therapeutic Substance into Peripheral Vein, Percutaneous Approach (ICD-10-PCS; principal; 2023-03-22)
PROC: 3E033NZ Introduction of Analgesics, Hypnotics, Sedatives into Peripheral Vein, Percutaneous Approach (ICD-10-PCS; 2023-03-22)
PROC: 3E033GC Introduction of Other Therapeutic Substance into Peripheral Vein, Percutaneous Approach (ICD-10-PCS; 2023-03-22)
DX: R51.9 Headache, unspecified (principal); R07.89 Other chest pain; R42 Dizziness and giddiness; Z20.822 Contact with and (suspected) exposure to COVID-19
CPT/HCPCS: 0241U-QW; 36415; 70450-TC; 71045-TC-FY; 80053; 83690; 83735; 83880; 84484; 85025; 85610; 85730; 93005; 93010; 96365; 96375; 99285-25

== ENCOUNTER 2024-11-08 07:27 | Emergency (ER) | payer OTHER ==
[2024-11-08 08:00] VITALS: RESP 18; TEMP 97.9; BMI 19.8
[2024-11-08 09:16] LABS: ABSOLUTE IMMATURE GRANULOCYTES 0.00 x10^3/uL (0.0-0.031); BASOPHILS # 0.02 x10^3/uL (0.01-0.08); EOSINOPHIL % 0.5 % (0.7-5.8); EOSINOPHILS # 0.02 x10^3/uL (0.04-0.36); MCHC 33.8 g/dl (32.2-35.5); MEAN CELL VOLUME 100.0 fl (79.4-94.8); MEAN PLT VOLUME 9.8 fl (9.4-12.3); MONOCYTE # 0.41 x10^3/uL (0.24-0.86); MONOCYTE % 9.9 % (4.7-12.5); RDW 13.0 % (12.5-17.0)
[2024-11-08 09:20] LABS: ALK PHOS 57.0 U/L (45-117); CO2 26.0 mmol/L (21-32); CREATININE 0.7 mg/dl (0.6-1.3); GLUCOSE,RANDOM 91.0 mg/dl (74-106); SGOT/AST 31.0 U/L (15-37); SGPT/ALT 19.0 U/L (7-52); TOT PROT 6.9 g/dl (6.4-8.2)
[2024-11-08] MEDS ORDERED: ACETAMINOPHEN 325 MG TABLET (FP) ONE (09:49)
[2024-11-08] MEDS: ACETAMINOPHEN 325 MG TABLET (FP) PO ONE (09:50)
[2024-11-08 16:20] LABS: HCV DIAGNOSTIC IN-HOUSE W/RFLX NON-REACTIVE (NONREACTIVE)
[2024-11-08 20:44] LABS: HIV INTERPRETATION NEGATIVE (NEGATIVE)
== END 2024-11-08 11:26 | disposition home or self-care (01) ==
LOC: FER 07:27
DX: S32.2XXA Fracture of coccyx, initial encounter for closed fracture (principal); W01.0XXA Fall on same level from slipping, tripping and stumbling without subsequent striking against object, initial encounter
CPT/HCPCS: 36415; 70450-TC; 72125-TC; 72192-TC; 80053; 85025; 86803; 87389; 99284-25